=== PATIENT | female | born 1970 | race Caucasian/White ===

== ENCOUNTER 2017-03-30 13:16 | Emergency (ER) | payer OTHER, BC ==
[2017-03-30] MEDS: HYDROcodone/APAP 5/325MG 1 TAB TABLET PO ×2 (15:18)
[2017-03-30] MEDS: CYCLOBENZAPRINE 10 MG TABLET. PO ×2 (15:18)
[2017-03-30] MEDS: KETOROLAC 15 MG/ML VIAL. IV ×2 (15:19)
== END 2017-03-30 15:31 | disposition home or self-care (01) ==
LOC: ER 13:16
DX: S09.90XA Unspecified injury of head, initial encounter (principal); R07.89 Other chest pain; M54.2 Cervicalgia; R11.2 Nausea with vomiting, unspecified; R19.7 Diarrhea, unspecified; R10.30 Lower abdominal pain, unspecified; F31.9 Bipolar disorder, unspecified; E78.00 Pure hypercholesterolemia, unspecified; Z88.8 Allergy status to other drugs, medicaments and biological substances; Z88.4 Allergy status to anesthetic agent; V43.52XA Car driver injured in collision with other type car in traffic accident, initial encounter; Y93.I9 Activity, other involving external motion; Y92.410 Unspecified street and highway as the place of occurrence of the external cause; Y99.8 Other external cause status
CPT/HCPCS: 70450; 71046; 72125; 93005; 96374; 99284-25; J1885

== ENCOUNTER 2017-08-07 20:22 | Emergency (ER) | payer BC, OTHER ==
[2017-08-08] MEDS: IV NORMAL SALINE 1000ML BAG 1,000 ML IV (00:14)
[2017-08-08] MEDS: KETOROLAC 30 MG/ML INJ. IV (00:15)
[2017-08-08] MEDS: diphenhydrAMINE 50 MG/ML VIAL IVP (00:15)
[2017-08-08] MEDS: MORPHINE SULFATE 4 MG/ML DISP.SYRIN. IV (00:16)
[2017-08-08] MEDS: METOCLOPRAMIDE HCL 10 MG/2 ML VIAL. IV (00:16)
== END 2017-08-08 01:04 | disposition home or self-care (01) ==
LOC: ER 08-08 01:04
DX: G43.909 Migraine, unspecified, not intractable, without status migrainosus (principal); E78.00 Pure hypercholesterolemia, unspecified; Z88.4 Allergy status to anesthetic agent; Z88.8 Allergy status to other drugs, medicaments and biological substances
CPT/HCPCS: 96374; 96375; 99284; J1200; J1885; J2270; J2765; J7030

== ENCOUNTER 2019-02-16 22:47 | Inpatient (IN) | payer BC ==
[~2019-02-16] VITALS: Ht 167.6 cm; Wt 79.0 kg
[~2019-02-16 22:47] MED LIST: CYCL10TA2 PO; HYDR-3164 PO; IBUP-1007 PO
--- NOTE | 2019-02-16 23:08 | PHYS DOC ---
Past Medical History Past Medical History: Bipolar, High Cholesterol, Migraines, Other Additional Past Medical Histor: GRAVES DX, HIGH TRIGLYCERIDES Past Surgical History: Tubal ligation, Other Additional Past Surgical Histo: LAP AND FALLOPIAN TUBE REMOVAL SX, BILAT EYE SX, R KNEE Alcohol Use: None Drug Use: None Adult General Chief Complaint Chief Complaint: ABDOMINAL PAIN [facility] HPI Patient is a 49 year old female who presents with abdominal pain has been ongoing for 4 days. The patient describes the pain as epigastric pain that also radiates to the right and left upper quadrant. The patient rates her pain 10 out of 10 in severity and sharp. The patient states that this is been ongoing intermittently for 10 months. States they have been unable to figure out what is causing his pain. The patient also states that she's having little bit of chest pain. Review of Systems Review of Systems Constitutional: Denies fever or chills [] Eyes: Denies change in visual acuity, redness, or eye pain [] HENT: Denies nasal congestion or sore throat [] Respiratory: Denies cough or shortness of breath [] Cardiovascular: No additional information not addressed in HPI [] GI: Reports abdominal pain. denies nausea, vomiting, bloody stools or diarrhea [] : Denies dysuria or hematuria [] Musculoskeletal: Denies back pain or joint pain [] Integument: Denies rash or skin lesions [] Neurologic: Denies headache, focal weakness or sensory changes [] Endocrine: Denies polyuria or polydipsia [] Complete systems were reviewed and found to be within normal limits, except as documented in this note. Current Medications Current Medications Current Medications Medications (Trade) Dose Ordered Sig/Deep Start Time Stop Time Status Last Admin Dose Admin Ceftriaxone Sodium (Rocephin) 1 gm 1X ONCE 02/17/19 01:00 02/17/19 01:01 Morphine Sulfate (Morphine Sulfate) 4 mg PRN Q2HR PRN 02/17/19 01:00 02/18/19 00:59 UNV Multi-Ingredient Mouthwash/Gargle (Gi Cocktail) 20 ml 1X ONCE 02/16/19 23:30 02/16/19 23:31 DC 02/16/19 23:04 20 ML Ondansetron HCl (Zofran) 4 mg PRN Q8HRS PRN 02/17/19 01:00 02/18/19 00:59 UNV Piperacillin Sod/ Tazobactam Sod 3.375 gm/Sodium Chloride 50 ml @ 100 mls/hr 1X ONCE 02/17/19 01:00 02/17/19 01:29 Sodium Chloride 1,000 ml @ 1,000 mls/hr 1X ONCE 02/16/19 23:30 02/17/19 00:29 DC 02/16/19 23:04 1,000 MLS/HR Allergies Allergies Allergies Coded Allergies Type Severity Reaction Last Updated Verified levothyroxine Allergy Intermediate HIVES 03/30/17 Yes propofol Adverse Reaction Intermediate VERTIGO 03/30/17 Yes Physical Exam Physical Exam Constitutional: Well developed, well nourished, no acute distress, non-toxic appearance. [] HENT: Normocephalic, atraumatic, bilateral external ears normal, oropharynx moist, no oral exudates, nose normal. [] Eyes: PERRLA, EOMI, conjunctiva normal, no discharge. [] Neck: Normal range of motion, no tenderness, supple, no stridor. [] Cardiovascular:Heart rate bradycardic, no murmur [] Lungs & Thorax: Bilateral breath sounds clear to auscultation [] Abdomen: Bowel sounds normal, soft, RUQ and LUQ abdominal pain, no masses, no pulsatile masses. [] Skin: Warm, dry, no erythema, no rash. [] Neurologic: Alert and oriented X 3, normal motor function, normal sensory function, no focal deficits noted. [] Psychologic: Affect normal, judgement normal, mood normal. [] Current Patient Data Vital Signs Vital Signs Date Time Temp Pulse Resp B/P (MAP) Pulse Ox O2 Delivery O2 Flow Rate FiO2 02/16/19 23:57 21 96 Room Air 02/16/19 22:50 97.4 47 177/79 (111) 97.4 Lab Values Laboratory Tests Test 02/16/19 22:55 White Blood Count 10.0 x10^3/uL (4.0-11.0) Red Blood Count 4.83 x10^6/uL (3.50-5.40) Hemoglobin 14.2 g/dL (12.0-15.5) Hematocrit 42.0 % (36.0-47.0) Mean Corpuscular Volume 87 fL (79-100) Mean Corpuscular Hemoglobin 30 pg (25-35) Mean Corpuscular Hemoglobin Concent 34 g/dL (31-37) Red Cell Distribution Width 12.5 % (11.5-14.5) Platelet Count 339 x10^3/uL (140-400) Neutrophils (%) (Auto) 49 % (31-73) Lymphocytes (%) (Auto) 38 % (24-48) Monocytes (%) (Auto) 8 % (0-9) Eosinophils (%) (Auto) 4 % (0-3) H Basophils (%) (Auto) 1 % (0-3) Neutrophils # (Auto) 4.9 x10^3/uL (1.8-7.7) Lymphocytes # (Auto) 3.9 x10^3/uL (1.0-4.8) Monocytes # (Auto) 0.8 x10^3/uL (0.0-1.1) Eosinophils # (Auto) 0.4 x10^3/uL (0.0-0.7) Basophils # (Auto) 0.1 x10^3/uL (0.0-0.2) Urine Collection Type Unknown Urine Color Yellow Urine Clarity Cloudy Urine pH 6.5 Urine Specific [place] 1.020 Urine Protein Negative mg/dL (NEG-TRACE) Urine Glucose (UA) Negative mg/dL (NEG) Urine Ketones (Stick) Negative mg/dL (NEG) Urine Blood Negative (NEG) Urine Nitrite Negative (NEG) Urine Bilirubin Negative (NEG) Urine Urobilinogen Dipstick 1.0 mg/dL (0.2 mg/dL) Urine Leukocyte Esterase Large (NEG) Urine RBC Occ /HPF (0-2) Urine WBC 11-20 /HPF (0-4) Urine Squamous Epithelial Cells Many /LPF Urine Amorphous Sediment Present /HPF Urine Bacteria Many /HPF (0-FEW) Urine Mucus Marked /LPF Sodium Level 145 mmol/L (136-145) Potassium Level 3.7 mmol/L (3.5-5.1) Chloride Level 106 mmol/L (98-107) Carbon Dioxide Level 26 mmol/L (21-32) Anion Gap 13 (6-14) Blood Urea Nitrogen 17 mg/dL (7-20) Creatinine 1.0 mg/dL (0.6-1.0) Estimated GFR (Cockcroft-Gault) 58.7 BUN/Creatinine Ratio 17 (6-20) Glucose Level 112 mg/dL (70-99) H Calcium Level 10.0 mg/dL (8.5-10.1) Total Bilirubin 0.3 mg/dL (0.2-1.0) Aspartate Amino Transferase (AST) 14 U/L (15-37) L Alanine Aminotransferase (ALT) 21 U/L (14-59) Alkaline Phosphatase 51 U/L (46-116) Troponin I Quantitative < 0.017 ng/mL (0.000-0.055) Total Protein 7.1 g/dL (6.4-8.2) Albumin 4.0 g/dL (3.4-5.0) Albumin/Globulin Ratio 1.3 (1.0-1.7) Lipase 181 U/L (73-393) Laboratory Tests 02/16/19 22:55 Laboratory Tests 02/16/19 22:55 EKG EKG EKG interpreted by Dr. Willie keen with rate of 48. No STEMI. Radiology/Procedures Radiology/Procedures [][facility] [address] [place] [address] IMAGING REPORT Signed PATIENT: PEREZ BAUTISTA ACCOUNT: [id number] : 1970 LOCATION: ER AGE: 49 SEX: F EXAM STATUS: REG ER ORD. PHYSICIAN: ANGELICA PINEDA APRN REASON: RUQ, LUQ abdominal pain PROCEDURE: ABDOMEN COMPLETE ABDOMEN COMPLETE Realtime grayscale images of the abdomen with color and pulsed doppler utilized as appropriate. History: Abdominal pain for 4 days Comparison: None. Findings: The liver is normal in appearance and echogenicity. No intrahepatic biliary ductal dilatation or mass is seen. Cholelithiasis, with 1.6 cm stone in the gallbladder neck. Abnormal gallbladder wall thickening measuring 0.4 cm. Sonographic Marcial's sign is reported as present. The common bile duct is normal in diameter and measures 0.4 cm. Portal Vein flow is hepatopetal. The pancreas is not well visualized. The aorta and IVC are normal diameter where visualized. The right kidney is normal in appearance, measuring 9.4 cm in length. The left kidney is normal in appearance, measuring 11.4 cm in length. No hydronephrosis or perinephric fluid are seen bilaterally. The spleen is normal in appearance and measures 11.7 cm. Impression: Cholelithiasis with abnormal gallbladder wall thickening. Sonographic Marcial's sign is reported as present. Findings are suspicious for acute cholecystitis. Electronically signed by: Nima Gutiérrez MD (02/17/2019 12:02 AM) [facility] DICTATED and SIGNED BY: NIMA GUTIÉRREZ MD DATE: 02/17/19 0002 Course & Med Decision Making Course & Med Decision Making Pertinent Labs and Imaging studies reviewed. (See chart for details) Will get labs, ekg, chest x-ray, and ultrasound. Will also give supportive care. Labs are unremarkable. Urine shows leukocytes. Will place on Rocephin. Ultrasound suggests Cholecystitis. Discussed with Dr. William ([id number]). Will order Zosyn and make NPO. Dragon Disclaimer Dragon Disclaimer This electronic medical record was generated, in whole or in part, using a voice recognition dictation system. Departure Departure Impression: Primary Impression: Cholecystitis, acute with cholelithiasis Additional Impression: Urinary tract infection Disposition: ADMITTED INPATIENT Admitting Physician: GILMAR Condition: STABLE Referrals: JAZZY MONSIVAIS MD (PCP) Problem Qualifiers Primary Impression: Cholecystitis, acute with cholelithiasis Biliary obstruction: without biliary obstruction Qualified Codes: K80.00 - Calculus of gallbladder with acute cholecystitis without obstruction ANGELICA PINEDA APRN Feb 16, 2019 23:08
[2019-02-16 23:10] LABS: BASO # 0.1 x10^3/uL (0.0-0.2); BASO % 1 % (0-3); BILIRUBIN,URINE NEGATIVE (NEG); CLARITY,URINE CLOUDY; COLOR,URINE YELLOW; EOS # 0.4 x10^3/uL (0.0-0.7); EOS % 4 % (0-3); HEMOGLOBIN 14.2 g/dL (12.0-15.5); LYMPH # 3.9 x10^3/uL (1.0-4.8); LYMPH % 38 % (24-48); MEAN CORPUSCULAR HEMOGLOBIN 30 pg (25-35); MEAN CORPUSCULAR HGB CONC 34 g/dL (31-37); MEAN CORPUSCULAR VOLUME 87 fL (79-100); MONO # 0.8 x10^3/uL (0.0-1.1); MONO % 8 % (0-9); NEUT # 4.9 x10^3/uL (1.8-7.7); NEUT % 49 % (31-73); NITRITE,URINE NEGATIVE (NEG); PH,URINE 6.5; PLATELET COUNT 339 x10^3/uL (140-400); PROTEIN,URINE NEGATIVE (NEG-TRACE); RED BLOOD COUNT 4.83 x10^6/uL (3.50-5.40); RED CELL DISTRIBUTION WIDTH 12.5 % (11.5-14.5)
[2019-02-16 23:15] LABS: SQUAMOUS EPITHELIAL CELL,UR MANY /LPF
[2019-02-16 23:16] LABS: BACTERIA,URINE MANY /HPF (0-FEW); RBC,URINE OCC /HPF (0-2)
[2019-02-16 23:17] LABS: AMORPHOUS SEDIMENT,UR PRESENT /HPF
[2019-02-16 23:19] LABS: GFR 58.7; POTASSIUM 3.7 mmol/L (3.5-5.1)
[2019-02-16 23:22] LABS: ALBUMIN/GLOBULIN RATIO 1.3 (1.0-1.7); TOTAL BILIRUBIN 0.3 mg/dL (0.2-1.0); TOTAL PROTEIN 7.1 g/dL (6.4-8.2)
[2019-02-16] MEDS ORDERED: IV NORMAL SALINE 1000ML BAG 1,000 ML IV ONE (23:30)
[2019-02-16] MEDS ORDERED: LIDO:MAALOX 1:1 20 ML SINGLE DOSE. SWSW ONE (23:30)
[2019-02-16] MEDS ORDERED: MORPHINE SULFATE 10 MG/ML VIAL. IV ONE (23:30)
[2019-02-17] VITALS (13 sets, daily range): BP systolic 91–147; BP diastolic 46–79
--- NOTE | 2019-02-17 00:05 | RAD ---
ABDOMEN COMPLETE Realtime grayscale images of the abdomen with color and pulsed doppler utilized as appropriate. History: Abdominal pain for 4 days Comparison: None. Findings: The liver is normal in appearance and echogenicity. No intrahepatic biliary ductal dilatation or mass is seen. Cholelithiasis, with 1.6 cm stone in the gallbladder neck. Abnormal gallbladder wall thickening measuring 0.4 cm. Sonographic Marcial's sign is reported as present. The common bile duct is normal in diameter and measures 0.4 cm. Portal Vein flow is hepatopetal. The pancreas is not well visualized. The aorta and IVC are normal diameter where visualized. The right kidney is normal in appearance, measuring 9.4 cm in length. The left kidney is normal in appearance, measuring 11.4 cm in length. No hydronephrosis or perinephric fluid are seen bilaterally. The spleen is normal in appearance and measures 11.7 cm. Impression: Cholelithiasis with abnormal gallbladder wall thickening. Sonographic Marcial's sign is reported as present. Findings are suspicious for acute cholecystitis. Electronically signed by: Devon Gutiérrez MD (02/17/2019 12:02 AM) [facility]
[2019-02-17] MEDS ORDERED: MORPHINE SULFATE 10 MG/ML VIAL. IV ONE (00:30)
[2019-02-17] MEDS ORDERED: ONDANSETRON PF 4 MG/2 ML VIAL. IV PRN ×2 (01:00→09:00)
[2019-02-17] MEDS ORDERED: PIPERACILLIN/TAZOBACTAM 3.375 GM in IV NORMAL SALINE 50ML 50 ML IV ONE ×2 (01:00→11:15)
[2019-02-17] MEDS ORDERED: cefTRIAXone IV Push 1 GM VIAL. IVP ONE (01:00)
[2019-02-17] MEDS: MORPHINE SULFATE 4 MG/ML VIAL. IV PRN ×5 (02:33→21:16)
--- NOTE | 2019-02-17 04:03 | RAD ---
CHEST PA LATERAL INDICATION: Chest pain. COMPARISON STUDY: 03/21/1917. FINDINGS: Lungs: Normal lung volume. No pulmonary mass or consolidation. The tracheobronchial tree and hilar structures are normal. Pleura: No pleural effusion or pneumothorax. Heart and Mediastinum: The cardiomediastinal silhouette is normal. The great vessels of the thorax are normal. Bones and Soft Tissues: The bones and soft tissues are within normal limits. IMPRESSION: No acute cardiopulmonary process. Electronically signed by: Devon Gutiérrez MD (02/17/2019 4:01 AM) [facility]
--- NOTE | 2019-02-17 06:53 | EKG ---
[facility] [address] [place] [address] Test Date: 2019-02-16 Test Time: 23:13:00 Pat Name: PEREZ BAUTISTA Department: Room: Gender: F Medical Editor: : 1970 Requested By: ANGELICA PINEDA Order Number: [id number] Reading MD: Measurements Intervals [employer] Rate: 48 P: 30 [place]: 150 QRS: -5 QRSD: 80 T: 19 QT: 446 QTc: 398 Interpretive Statements SINUS BRADYCARDIA ATRIAL PREMATURE COMPLEX(ES) LEFTWARD AXIS QRS(T) CONTOUR ABNORMALITY CONSIDER ANTEROLATERAL MYOCARDIAL DAMAGE POSSIBLY ABNORMAL ECG RI6.01 No previous ECG available for comparison
--- NOTE | 2019-02-17 08:34 | PDOC2 ---
FRANCISCA DOUGHERTY SENIOR INVESTMENT MANAGER 02/17/19 0834: CONSULT Date of Consult Date of Consult DATE: 02/17/19 TIME: 08:25 Reason for Consult Reason for Consult: cholecystitis Referring Physician Referring Physician: ER Identification/Chief Complaint Chief Complaint abdominal pain Source Source: Chart review, Patient History of Present Illness Reason for Visit: Reports several months of upper abdominal pain. Occurs after eating, associated nausea, emesis occasionally. Developed thursday and pain was severe and not improving. She did recently have a EGD, needed sono but just had not scheduled it yet. Past Medical History Cardiovascular: Hyperlipidemia Psych: Bipolar Endocrine: Other (graves disease ) Past Surgical History Past Surgical History: Tubal Ligation Family History Family History: Other (gallbladder disease ) Social History Quit (2012) ALCOHOL: none Drugs: Marijuana Lives: with Family Current Problem List Problem List Problems Medical Problems: (1) Cholecystitis, acute with cholelithiasis Status: Acute (2) Urinary tract infection Status: Acute Current Medications Current Medications Current Medications Sodium Chloride 1,000 ml @ 1,000 mls/hr 1X ONCE IV Last administered on 02/16/19at 23:04; Start 02/16/19 at 23:30; Stop 02/17/19 at 00:29; Status DC Multi-Ingredient Mouthwash/Gargle (Gi Cocktail) 20 ml 1X ONCE SWSW Last administered on 02/16/19at 23:04; Start 02/16/19 at 23:30; Stop 02/16/19 at 23:31; Status DC Morphine Sulfate (Morphine Sulfate) 5 mg 1X ONCE IV Last administered on 02/16/19at 23:04; Start 02/16/19 at 23:30; Stop 02/16/19 at 23:31; Status DC Morphine Sulfate (Morphine Sulfate) 5 mg 1X ONCE IV Last administered on 02/16/19at 23:57; Start 02/17/19 at 00:30; Stop 02/17/19 at 00:31; Status DC Piperacillin Sod/ Tazobactam Sod 3.375 gm/Sodium Chloride 50 ml @ 100 mls/hr 1X ONCE IV Last administered on 02/17/19at 01:01; Start 02/17/19 at 01:00; Stop 02/17/19 at 01:29; Status DC Ceftriaxone Sodium (Rocephin) 1 gm 1X ONCE IVP Last administered on 02/17/19at 01:01; Start 02/17/19 at 01:00; Stop 02/17/19 at 01:01; Status DC Ondansetron HCl (Zofran) 4 mg PRN Q8HRS PRN IV NAUSEA/VOMITING 1ST CHOICE; Start 02/17/19 at 01:00; Stop 02/18/19 at 00:59 Morphine Sulfate (Morphine Sulfate) 4 mg PRN Q2HR PRN IV SEVERE PAIN 7-10 Last administered on 02/17/19at 04:49; Start 02/17/19 at 01:00; Stop 02/18/19 at 00:59 Active Scripts Active Casa 5-325 Tablet (Acetaminophen/Hydrocodone Bitart) 1 Each Tablet 1 Tab PO QID PRN Ibuprofen 600 Mg Tablet 600 Mg PO PRN Q6HRS PRN Cyclobenzaprine Hcl 10 Mg Tablet 10 Mg PO TID PRN Allergies Allergies: Coded Allergies: levothyroxine (Verified Allergy, Intermediate, HIVES, 03/30/17) STATES "I AM ALLERGIC TO THE GENERIC LEVOTHYROXINE BUT I TAKE SYNTHROID". propofol (Verified Adverse Reaction, Intermediate, VERTIGO, 03/30/17) ROS General: No: Chills, Other (fevers ) PSYCHOLOGICAL ROS: No: Anxiety, Depression Eyes: No Blurry vision, No Double vision HEENT: No: Heacaches, Sore Throat Hematological and Lymphatic: No: Bleeding Problems, Blood Clots Respiratory: YES: Shortness of breath; No: Cough Cardiovascular: yes Chest Pain; No Palpitations Gastrointestinal: Yes Other (see hpi) Genitourinary: No Dysuria, No Hematuria Musculoskeletal: No Joint Pain, No Muscle Pain Neurological: No Impaired Coord/balance Skin: No Pruritus, No Rash Physical Exam General: Alert, Oriented X3, Cooperative, No acute distress HEENT: PERRLA, Mucous membr. moist/pink Lungs: Clear to auscultation, Normal air movement Heart: Regular rate, Normal S1, Normal S2 Abdomen: Soft, Other (ttp upper abdomen ) Extremities: No clubbing, No cyanosis Skin: No rashes, No breakdown Neuro: Normal gait, Normal speech Psych/Mental Status: Mental status NL, Mood NL MUSCULOSKELETAL: No deformity, No swelling Vitals VITALS Vital Signs Date Time Temp Pulse Resp B/P (MAP) Pulse Ox O2 Delivery O2 Flow Rate FiO2 02/17/19 05:19 18 02/17/19 04:54 97.8 52 100/55 (70) 98 Room Air 97.8 Labs Labs Laboratory Tests Test 02/16/19 22:55 White Blood Count 10.0 x10^3/uL (4.0-11.0) Red Blood Count 4.83 x10^6/uL (3.50-5.40) Hemoglobin 14.2 g/dL (12.0-15.5) Hematocrit 42.0 % (36.0-47.0) Mean Corpuscular Volume 87 fL (79-100) Mean Corpuscular Hemoglobin 30 pg (25-35) Mean Corpuscular Hemoglobin Concent 34 g/dL (31-37) Red Cell Distribution Width 12.5 % (11.5-14.5) Platelet Count 339 x10^3/uL (140-400) Neutrophils (%) (Auto) 49 % (31-73) Lymphocytes (%) (Auto) 38 % (24-48) Monocytes (%) (Auto) 8 % (0-9) Eosinophils (%) (Auto) 4 % (0-3) Basophils (%) (Auto) 1 % (0-3) Neutrophils # (Auto) 4.9 x10^3/uL (1.8-7.7) Lymphocytes # (Auto) 3.9 x10^3/uL (1.0-4.8) Monocytes # (Auto) 0.8 x10^3/uL (0.0-1.1) Eosinophils # (Auto) 0.4 x10^3/uL (0.0-0.7) Basophils # (Auto) 0.1 x10^3/uL (0.0-0.2) Urine Collection Type Unknown Urine Color Yellow Urine Clarity Cloudy Urine pH 6.5 Urine Specific [place] 1.020 Urine Protein Negative mg/dL (NEG-TRACE) Urine Glucose (UA) Negative mg/dL (NEG) Urine Ketones (Stick) Negative mg/dL (NEG) Urine Blood Negative (NEG) Urine Nitrite Negative (NEG) Urine Bilirubin Negative (NEG) Urine Urobilinogen Dipstick 1.0 mg/dL (0.2 mg/dL) Urine Leukocyte Esterase Large (NEG) Urine RBC Occ /HPF (0-2) Urine WBC 11-20 /HPF (0-4) Urine Squamous Epithelial Cells Many /LPF Urine Amorphous Sediment Present /HPF Urine Bacteria Many /HPF (0-FEW) Urine Mucus Marked /LPF Sodium Level 145 mmol/L (136-145) Potassium Level 3.7 mmol/L (3.5-5.1) Chloride Level 106 mmol/L (98-107) Carbon Dioxide Level 26 mmol/L (21-32) Anion Gap 13 (6-14) Blood Urea Nitrogen 17 mg/dL (7-20) Creatinine 1.0 mg/dL (0.6-1.0) Estimated GFR (Cockcroft-Gault) 58.7 BUN/Creatinine Ratio 17 (6-20) Glucose Level 112 mg/dL (70-99) Calcium Level 10.0 mg/dL (8.5-10.1) Total Bilirubin 0.3 mg/dL (0.2-1.0) Aspartate Amino Transf (AST/SGOT) 14 U/L (15-37) Alanine Aminotransferase (ALT/SGPT) 21 U/L (14-59) Alkaline Phosphatase 51 U/L (46-116) Troponin I Quantitative < 0.017 ng/mL (0.000-0.055) Total Protein 7.1 g/dL (6.4-8.2) Albumin 4.0 g/dL (3.4-5.0) Albumin/Globulin Ratio 1.3 (1.0-1.7) Lipase 181 U/L (73-393) Laboratory Tests Test 02/16/19 22:55 White Blood Count 10.0 x10^3/uL (4.0-11.0) Red Blood Count 4.83 x10^6/uL (3.50-5.40) Hemoglobin 14.2 g/dL (12.0-15.5) Hematocrit 42.0 % (36.0-47.0) Mean Corpuscular Volume 87 fL (79-100) Mean Corpuscular Hemoglobin 30 pg (25-35) Mean Corpuscular Hemoglobin Concent 34 g/dL (31-37) Red Cell Distribution Width 12.5 % (11.5-14.5) Platelet Count 339 x10^3/uL (140-400) Neutrophils (%) (Auto) 49 % (31-73) Lymphocytes (%) (Auto) 38 % (24-48) Monocytes (%) (Auto) 8 % (0-9) Eosinophils (%) (Auto) 4 % (0-3) Basophils (%) (Auto) 1 % (0-3) Neutrophils # (Auto) 4.9 x10^3/uL (1.8-7.7) Lymphocytes # (Auto) 3.9 x10^3/uL (1.0-4.8) Monocytes # (Auto) 0.8 x10^3/uL (0.0-1.1) Eosinophils # (Auto) 0.4 x10^3/uL (0.0-0.7) Basophils # (Auto) 0.1 x10^3/uL (0.0-0.2) Urine Collection Type Unknown Urine Color Yellow Urine Clarity Cloudy Urine pH 6.5 Urine Specific [place] 1.020 Urine Protein Negative mg/dL (NEG-TRACE) Urine Glucose (UA) Negative mg/dL (NEG) Urine Ketones (Stick) Negative mg/dL (NEG) Urine Blood Negative (NEG) Urine Nitrite Negative (NEG) Urine Bilirubin Negative (NEG) Urine Urobilinogen Dipstick 1.0 mg/dL (0.2 mg/dL) Urine Leukocyte Esterase Large (NEG) Urine RBC Occ /HPF (0-2) Urine WBC 11-20 /HPF (0-4) Urine Squamous Epithelial Cells Many /LPF Urine Amorphous Sediment Present /HPF Urine Bacteria Many /HPF (0-FEW) Urine Mucus Marked /LPF Sodium Level 145 mmol/L (136-145) Potassium Level 3.7 mmol/L (3.5-5.1) Chloride Level 106 mmol/L (98-107) Carbon Dioxide Level 26 mmol/L (21-32) Anion Gap 13 (6-14) Blood Urea Nitrogen 17 mg/dL (7-20) Creatinine 1.0 mg/dL (0.6-1.0) Estimated GFR (Cockcroft-Gault) 58.7 BUN/Creatinine Ratio 17 (6-20) Glucose Level 112 mg/dL (70-99) Calcium Level 10.0 mg/dL (8.5-10.1) Total Bilirubin 0.3 mg/dL (0.2-1.0) Aspartate Amino Transf (AST/SGOT) 14 U/L (15-37) Alanine Aminotransferase (ALT/SGPT) 21 U/L (14-59) Alkaline Phosphatase 51 U/L (46-116) Troponin I Quantitative < 0.017 ng/mL (0.000-0.055) Total Protein 7.1 g/dL (6.4-8.2) Albumin 4.0 g/dL (3.4-5.0) Albumin/Globulin Ratio 1.3 (1.0-1.7) Lipase 181 U/L (73-393) Assessment/Plan Assessment/Plan cholecystitis will review with Dr Gonzales for planning of lap ivory PHANI GONZALES MD 02/17/19 1039: CONSULT Assessment/Plan Assessment/Plan pt seen, interviewed and examined at bedside explained risks of cholecystectomy including but not limited to bleeding, infection, injury to bowel, liver or bile ducts with need for further surgical intervention, diarrhea, open procedure she will proceed Thanks for consult FRANCISCA DOUGHERTY APRN Feb 17, 2019 08:34 PHANI GONZALES MD Feb 17, 2019 10:39
[2019-02-17] MEDS ORDERED: IV RINGERS,LACTATED 1000ML 1,000 ML IV SCH (08:52)
[2019-02-17] MEDS ORDERED: fentaNYL PF VIAL 100 MCG/2 ML VIAL IV PRN ×2 (09:00)
[2019-02-17] MEDS ORDERED: HYDROcodone/APAP 5/325MG 1 TAB TABLET PO PRN (09:15)
[2019-02-17] MEDS ORDERED: ACETAMINOPHEN 500 MG TABLET PO PRN (09:15)
[2019-02-17] MEDS ORDERED: CALCIUM CARBONATE 500 MG TAB.CHEW PO PRN (09:15)
[2019-02-17] MEDS ORDERED: ZOLPIDEM 5 MG TABLET. PO PRN (09:15)
[2019-02-17] MEDS ORDERED: CYCLOBENZAPRINE 10 MG TABLET. PO PRN (09:15)
[2019-02-17] MEDS ORDERED: ONDANSETRON PF 4 MG/2 ML VIAL. IVP PRN ×2 (09:15→15:30)
[2019-02-17] MEDS ORDERED: oxyCODONE/APAP 5/325 1 TAB TABLET PO PRN ×2 (09:15→15:30)
[2019-02-17] MEDS ORDERED: PROPOFOL 20 ML IV ONE (11:57)
[2019-02-17] MEDS ORDERED: ONDANSETRON PF 4 MG/2 ML VIAL. ONE (11:57)
[2019-02-17] MEDS ORDERED: DEXAMETHASONE SOD PHOS 4 MG/ML VIAL ONE (11:57)
[2019-02-17] MEDS ORDERED: LIDOCAINE 2% PF 5 ML VIAL. ONE (11:57)
--- NOTE | 2019-02-17 12:24 | PDOC1 ---
History and Physical Date of Admission Date of Admission DATE: 02/17/19 TIME: 12:20 Identification/Chief Complaint Chief Complaint abd pain Source Source: Caregiver, Chart review, Patient History of Present Illness History of Present Illness 49 white female, abd pain acute onset, some nausea, no fevers or change inBM, HAs US, acute cholecystitis with positive sonographic murphys OR later per gS Past Medical History Cardiovascular: Hyperlipidemia Psych: Bipolar Endocrine: Other (graves disease ) Past Surgical History Past Surgical History: Tubal Ligation, No pertinent history Family History Family History: Other (gallbladder disease ) Social History Smoke: No ALCOHOL: none Drugs: Marijuana Current Problem List Problem List Problems Medical Problems: (1) Cholecystitis, acute with cholelithiasis Status: Acute (2) Urinary tract infection Status: Acute Current Medications Current Medications Current Medications Sodium Chloride 1,000 ml @ 1,000 mls/hr 1X ONCE IV Last administered on 02/16/19at 23:04; Start 02/16/19 at 23:30; Stop 02/17/19 at 00:29; Status DC Multi-Ingredient Mouthwash/Gargle (Gi Cocktail) 20 ml 1X ONCE SWSW Last administered on 02/16/19at 23:04; Start 02/16/19 at 23:30; Stop 02/16/19 at 23 :31; Status DC Morphine Sulfate (Morphine Sulfate) 5 mg 1X ONCE IV Last administered on 02/16/19at 23:04; Start 02/16/19 at 23:30; Stop 02/16/19 at 23:31; Status DC Morphine Sulfate (Morphine Sulfate) 5 mg 1X ONCE IV Last administered on 02/16/19at 23:57; Start 02/17/19 at 00:30; Stop 02/17/19 at 00:31; Status DC Piperacillin Sod/ Tazobactam Sod 3.375 gm/Sodium Chloride 50 ml @ 100 mls/hr 1X ONCE IV Last administered on 02/17/19at 01:01; Start 02/17/19 at 01:00; Stop 02/17/19 at 01:29; Status DC Ceftriaxone Sodium (Rocephin) 1 gm 1X ONCE IVP Last administered on 02/17/19at 01:01; Start 02/17/19 at 01:00; Stop 02/17/19 at 01:01; Status DC Ondansetron HCl (Zofran) 4 mg PRN Q8HRS PRN IV NAUSEA/VOMITING 1ST CHOICE; Start 02/17/19 at 01:00; Stop 02/18/19 at 00:59 Morphine Sulfate (Morphine Sulfate) 4 mg PRN Q2HR PRN IV SEVERE PAIN 7-10 Last administered on 02/17/19at 10:40; Start 02/17/19 at 01:00; Stop 02/18/19 at 00:59 Ondansetron HCl (Zofran) 4 mg PRN Q6HRS PRN IV NAUSEA/VOMITING; Start 02/17/19 at 09:00; Stop 02/17/19 at 20:00 Fentanyl Citrate (Fentanyl 2ml Vial) 25 mcg PRN Q5MIN PRN IV MILD PAIN 1-3; S tart 02/17/19 at 09:00; Stop 02/17/19 at 20:00 Fentanyl Citrate (Fentanyl 2ml Vial) 50 mcg PRN Q5MIN PRN IV MODERATE TO SEVERE PAIN; Start 02/17/19 at 09:00; Stop 02/17/19 at 20:00 Morphine Sulfate (Morphine Sulfate) 1 mg PRN Q10MIN PRN IV SEVERE PAIN 7-10; Start 02/17/19 at 09:00; Stop 02/17/19 at 20:00 Ringer's Solution 1,000 ml @ 30 mls/hr Q24H IV ; Start 02/17/19 at 08:52; Stop 02/17/19 at 20:51 Hydromorphone HCl (Dilaudid) 0.5 mg PRN Q10MIN PRN IV SEV PAIN, Second choice; Start 02/17/19 at 09:00; Stop 02/17/19 at 20:00 Prochlorperazine Edisylate (Compazine) 5 mg PACU PRN PRN IV NAUSEA, MRX1; Start 02/17/19 at 09:00; Stop 02/17/19 at 20:00 Oxycodone/ Acetaminophen (Percocet 5/325) 1 tab PRN Q4HRS PRN PO MODERATE TO SEVERE PAIN; Start 02/17/19 at 09:15 Ondansetron HCl (Zofran) 4 mg PRN Q6HRS PRN IVP NAUSEA/VOMITING; Start 02/17/19 at 09:15 Acetaminophen (Tylenol) 500 mg PRN Q6HRS PRN PO MILD PAIN / TEMP; Start 02/17/19 at 09:15 Zolpidem Tartrate (Ambien) 5 mg PRN QHS PRN PO INSOMNIA; Start 02/17/19 at 09:15 Calcium Carbonate/ Glycine (Tums) 500 mg PRN AFTMEALHC PRN PO INDIGESTION; Start 02/17/19 at 09:15 Cyclobenzaprine HCl (Flexeril) 10 mg PRN TID PRN PO MUSCLE PAIN; Start 02/17/19 at 09:15 Acetaminophen/ Hydrocodone Bitart (Lortab 5/325) 1 tab PRN QID PRN PO MODERATE PAIN; Start 02/17/19 at 09:15 Piperacillin Sod/ Tazobactam Sod 3.375 gm/Sodium Chloride 50 ml @ 100 mls/hr 1X ONCE IV ; Start 02/17/19 at 11:15; Stop 02/17/19 at 11:44; Status DC Dexamethasone Sodium Phosphate (Decadron) 4 mg STK-MED ONCE .ROUTE ; Start 02/17/19 at 11:57; Stop 02/17/19 at 11:57; Status DC Propofol 20 ml @ As Directed STK-MED ONCE IV ; Start 02/17/19 at 11:57; Stop 02/17/19 at 11:57; Status DC Lidocaine HCl (Lidocaine Pf 2% Vial) 5 ml STK-MED ONCE .ROUTE ; Start 02/17/19 at 11:57; Stop 02/17/19 at 11:57; Status DC Ondansetron HCl (Zofran) 4 mg STK-MED ONCE .ROUTE ; Start 02/17/19 at 11:57; Stop 02/17/19 at 11:57; Status DC Active Scripts Active [place] 5-325 Tablet (Acetaminophen/Hydrocodone Bitart) 1 Each Tablet 1 Tab PO QID PRN Ibuprofen 600 Mg Tablet 600 Mg PO PRN Q6HRS PRN Cyclobenzaprine Hcl 10 Mg Tablet 10 Mg PO TID PRN Allergies Allergies: Coded Allergies: levothyroxine (Verified Allergy, Intermediate, HIVES, 03/30/17) STATES "I AM ALLERGIC TO THE GENERIC LEVOTHYROXINE BUT I TAKE SYNTHROID". propofol (Verified Adverse Reaction, Intermediate, VERTIGO, 03/30/17) ROS Review of System as per hPI all else neg Physical Exam General: Alert, Oriented X3, Cooperative, No acute distress HEENT: Atraumatic, PERRLA, EOMI Lungs: Clear to auscultation, Normal air movement Heart: S1S2, RRR, no thrills, no rubs, no gallops, no murmurs Cardiovascular: S1, S2 Breasts: Normal, Rt breast nml w/o mass, Lt breast nml w/o mass, Nipples normal Abdomen: Normal bowel sounds, Soft, Other (tenderness epig and rUQ) Rectal Exam: not examined PELVIC: Nml ext genitalia Extremities: No clubbing, No cyanosis, No edema, Normal pulses, No tenderness/swelling Skin: No rashes, No breakdown, No significant lesion Neuro: Normal gait, Normal speech, Strength at 5/5 X4 ext, Normal tone, Sensation intact, Cranial nerves 3-12 NL, Reflexes 2+ Psych/Mental Status: Mental status NL, Mood NL Vitals Vitals Vital Signs Date Time Temp Pulse Resp B/P (MAP) Pulse Ox O2 Delivery O2 Flow Rate FiO2 02/17/19 11:25 16 Room Air 02/17/19 11:00 98.1 61 92/46 (61) 100 98.1 Labs Labs Laboratory Tests Test 02/16/19 22:55 White Blood Count 10.0 x10^3/uL (4.0-11.0) Red Blood Count 4.83 x10^6/uL (3.50-5.40) Hemoglobin 14.2 g/dL (12.0-15.5) Hematocrit 42.0 % (36.0-47.0) Mean Corpuscular Volume 87 fL (79-100) Mean Corpuscular Hemoglobin 30 pg (25-35) Mean Corpuscular Hemoglobin Concent 34 g/dL (31-37) Red Cell Distribution Width 12.5 % (11.5-14.5) Platelet Count 339 x10^3/uL (140-400) Neutrophils (%) (Auto) 49 % (31-73) Lymphocytes (%) (Auto) 38 % (24-48) Monocytes (%) (Auto) 8 % (0-9) Eosinophils (%) (Auto) 4 % (0-3) Basophils (%) (Auto) 1 % (0-3) Neutrophils # (Auto) 4.9 x10^3/uL (1.8-7.7) Lymphocytes # (Auto) 3.9 x10^3/uL (1.0-4.8) Monocytes # (Auto) 0.8 x10^3/uL (0.0-1.1) Eosinophils # (Auto) 0.4 x10^3/uL (0.0-0.7) Basophils # (Auto) 0.1 x10^3/uL (0.0-0.2) Urine Collection Type Unknown Urine Color Yellow Urine Clarity Cloudy Urine pH 6.5 Urine Specific [place] 1.020 Urine Protein Negative mg/dL (NEG-TRACE) Urine Glucose (UA) Negative mg/dL (NEG) Urine Ketones (Stick) Negative mg/dL (NEG) Urine Blood Negative (NEG) Urine Nitrite Negative (NEG) Urine Bilirubin Negative (NEG) Urine Urobilinogen Dipstick 1.0 mg/dL (0.2 mg/dL) Urine Leukocyte Esterase Large (NEG) Urine RBC Occ /HPF (0-2) Urine WBC 11-20 /HPF (0-4) Urine Squamous Epithelial Cells Many /LPF Urine Amorphous Sediment Present /HPF Urine Bacteria Many /HPF (0-FEW) Urine Mucus Marked /LPF Sodium Level 145 mmol/L (136-145) Potassium Level 3.7 mmol/L (3.5-5.1) Chloride Level 106 mmol/L (98-107) Carbon Dioxide Level 26 mmol/L (21-32) Anion Gap 13 (6-14) Blood Urea Nitrogen 17 mg/dL (7-20) Creatinine 1.0 mg/dL (0.6-1.0) Estimated GFR (Cockcroft-Gault) 58.7 BUN/Creatinine Ratio 17 (6-20) Glucose Level 112 mg/dL (70-99) Calcium Level 10.0 mg/dL (8.5-10.1) Total Bilirubin 0.3 mg/dL (0.2-1.0) Aspartate Amino Transf (AST/SGOT) 14 U/L (15-37) Alanine Aminotransferase (ALT/SGPT) 21 U/L (14-59) Alkaline Phosphatase 51 U/L (46-116) Troponin I Quantitative < 0.017 ng/mL (0.000-0.055) Total Protein 7.1 g/dL (6.4-8.2) Albumin 4.0 g/dL (3.4-5.0) Albumin/Globulin Ratio 1.3 (1.0-1.7) Lipase 181 U/L (73-393) Laboratory Tests Test 02/16/19 22:55 White Blood Count 10.0 x10^3/uL (4.0-11.0) Red Blood Count 4.83 x10^6/uL (3.50-5.40) Hemoglobin 14.2 g/dL (12.0-15.5) Hematocrit 42.0 % (36.0-47.0) Mean Corpuscular Volume 87 fL (79-100) Mean Corpuscular Hemoglobin 30 pg (25-35) Mean Corpuscular Hemoglobin Concent 34 g/dL (31-37) Red Cell Distribution Width 12.5 % (11.5-14.5) Platelet Count 339 x10^3/uL (140-400) Neutrophils (%) (Auto) 49 % (31-73) Lymphocytes (%) (Auto) 38 % (24-48) Monocytes (%) (Auto) 8 % (0-9) Eosinophils (%) (Auto) 4 % (0-3) Basophils (%) (Auto) 1 % (0-3) Neutrophils # (Auto) 4.9 x10^3/uL (1.8-7.7) Lymphocytes # (Auto) 3.9 x10^3/uL (1.0-4.8) Monocytes # (Auto) 0.8 x10^3/uL (0.0-1.1) Eosinophils # (Auto) 0.4 x10^3/uL (0.0-0.7) Basophils # (Auto) 0.1 x10^3/uL (0.0-0.2) Urine Collection Type Unknown Urine Color Yellow Urine Clarity Cloudy Urine pH 6.5 Urine Specific [place] 1.020 Urine Protein Negative mg/dL (NEG-TRACE) Urine Glucose (UA) Negative mg/dL (NEG) Urine Ketones (Stick) Negative mg/dL (NEG) Urine Blood Negative (NEG) Urine Nitrite Negative (NEG) Urine Bilirubin Negative (NEG) Urine Urobilinogen Dipstick 1.0 mg/dL (0.2 mg/dL) Urine Leukocyte Esterase Large (NEG) Urine RBC Occ /HPF (0-2) Urine WBC 11-20 /HPF (0-4) Urine Squamous Epithelial Cells Many /LPF Urine Amorphous Sediment Present /HPF Urine Bacteria Many /HPF (0-FEW) Urine Mucus Marked /LPF Sodium Level 145 mmol/L (136-145) Potassium Level 3.7 mmol/L (3.5-5.1) Chloride Level 106 mmol/L (98-107) Carbon Dioxide Level 26 mmol/L (21-32) Anion Gap 13 (6-14) Blood Urea Nitrogen 17 mg/dL (7-20) Creatinine 1.0 mg/dL (0.6-1.0) Estimated GFR (Cockcroft-Gault) 58.7 BUN/Creatinine Ratio 17 (6-20) Glucose Level 112 mg/dL (70-99) Calcium Level 10.0 mg/dL (8.5-10.1) Total Bilirubin 0.3 mg/dL (0.2-1.0) Aspartate Amino Transf (AST/SGOT) 14 U/L (15-37) Alanine Aminotransferase (ALT/SGPT) 21 U/L (14-59) Alkaline Phosphatase 51 U/L (46-116) Troponin I Quantitative < 0.017 ng/mL (0.000-0.055) Total Protein 7.1 g/dL (6.4-8.2) Albumin 4.0 g/dL (3.4-5.0) Albumin/Globulin Ratio 1.3 (1.0-1.7) Lipase 181 U/L (73-393) VTE Prophylaxis Ordered VTE Prophylaxis Devices: Yes VTE Pharmacological Prophylaxi: Yes Assessment/Plan Assessment/Plan 1. Acute cholecystitis 2. Dyslidpiemia, chronic stable PLAN: OR ;later, pain control Post op labs tmr I reconciled home meds JULIO [address]AR [address] MD Feb 17, 2019 12:24
--- NOTE | 2019-02-17 12:56 | NUR ---
SW following for discharge planning. Chart reviewed, discussed with RN, pt is from home. Lenora dodson today. SW will continue to follow should any discharge needs arise.
[2019-02-17] MEDS ORDERED: IOHEXOL 300 MG/ML 50 ML VIAL. ONE (13:03)
[2019-02-17] MEDS ORDERED: GLUCAGON,HUMAN RECOMBINANT 1 MG/ML VIAL. ONE ×2 (13:03→13:40)
[2019-02-17] MEDS ORDERED: SURGICEL HEMOSTAT 4X8 EACH. ONE ×2 (13:03→13:40)
[2019-02-17] MEDS ORDERED: BUPIVACAINE-EPI 0.5%-1:200000 MPF 30 ML VIAL. INJ ONE (13:15)
[2019-02-17] MEDS ORDERED: DESFLURANE 61 TO 120 MINUTES IH ONE (13:55)
[2019-02-17] MEDS ORDERED: GLYCOPYRROLATE 1 MG/5 ML VIAL. ONE (13:55)
[2019-02-17] MEDS ORDERED: fentaNYL PF VIAL 100 MCG/2 ML VIAL ONE ×2 (13:55→15:23)
[2019-02-17] MEDS ORDERED: ROCURONIUM 50 MG/5 ML VIAL. ONE (13:55)
[2019-02-17] MEDS ORDERED: NEOSTIGMINE METHYLSULFATE 5 MG/5 ML SYRINGE. ONE (13:55)
[2019-02-17] MEDS ORDERED: ETOMIDATE 20 MG/10 ML VIAL. IV ONE (14:13)
--- NOTE | 2019-02-17 15:04 | RAD ---
CHOLANGIOGRAM INTRAOPERATIVE History: Cholecystectomy Comparison: February 16, 2019 ultrasound Findings: Interpretation is made of submitted images only, exam performed by different physician. 4 low resolution intraprocedural views from a cholangiogram are submitted. There has been introduction of contrast into the cystic duct, common bile caliber within limits without defined intraluminal filling defect. There is some contrast in the duodenum. Fluoroscopy time: 27 seconds Impression: 1. No focal filling defect is identified of the common bile duct. Electronically signed by: Devon Hi MD (02/17/2019 3:01 PM) [facility]
[2019-02-17] MEDS: IV NORMAL SALINE 1000ML BAG 1,000 ML IV SCH (15:16)
--- NOTE | 2019-02-17 15:29 | PDOC ---
BRIEF OPERATIVE NOTE Date: Feb 17, 2019 Pre-Op Diagnosis cholelithiasis with acute cholecystitis Post-Op Diagnosis same Procedure Performed l/s ivory with grams Surgeon Stewart Surveillance Systems Engineer Annabelle HOLDER Anesthesia Type: General Blood Loss 10cc IV Fluid 700cc Specimens Obtained GB Findings acute cholecystitis, normal grams Complications none Operative Note Wk #[id number] PHANI GONZALES MD Feb 17, 2019 15:29
[2019-02-17] MEDS ORDERED: DEXTROSE 50% 25 GM / 50ML DISP.SYRIN. IV PRN (15:30)
[2019-02-17] MEDS ORDERED: HYDROmorphone 2 MG/ML VIAL IV PRN (15:30)
[2019-02-17] MEDS ORDERED: IV DEXTROSE 5% 250 ML BAG. IV PRN (15:30)
[2019-02-17] MEDS ORDERED: NALOXONE 0.4 MG/ML VIAL. IV PRN (15:30)
[2019-02-17] MEDS ORDERED: 0.9 % SODIUM CHLORIDE 10 ML DISP.SYRIN. IV PRN (15:30)
[2019-02-17] MEDS ORDERED: diphenhydrAMINE HCL 25 MG CAPSULE PO PRN (15:30)
[2019-02-17] MEDS ORDERED: HYDROmorphone 2 MG/ML VIAL ONE (15:58)
[2019-02-17] MEDS ORDERED: MORPHINE SULFATE 2 MG/ML VIAL. ONE (15:58)
[2019-02-17] MEDS: ENOXAPARIN 40 MG/0.4 ML SYRINGE. SQ SCH (16:00)
[2019-02-17] MEDS: MORPHINE SULFATE 2 MG/ML VIAL. IV PRN ×2 (16:05→16:29)
[2019-02-17] MEDS: HYDROmorphone 2 MG/ML VIAL IV PRN ×4 (16:11→16:57)
[2019-02-17] MEDS: PROCHLORPERAZINE 10 MG/2 ML VIAL. IV PRN ×2 (16:30→16:57)
[2019-02-17] MEDS: POTASSIUM CL 20MEQ-0.45% NACL 1,000 ML IV SCH (17:41)
--- NOTE | 2019-02-17 19:33 | OP ---
DATE OF SURGERY: 02/17/2019 PREOPERATIVE DIAGNOSES: Cholelithiasis with acute cholecystitis. POSTOPERATIVE DIAGNOSES: Cholelithiasis with acute cholecystitis. PROCEDURE: Laparoscopic cholecystectomy with cholangiogram. SURGEON: Sanjeev Gonzales MD THREAD WEAVER: GALLO Gordon ANESTHESIA: General endotracheal. ESTIMATED BLOOD LOSS: 10 mL. INTRAVENOUS: 700 mL. DESCRIPTION OF PROCEDURE: The patient brought to the operating suite, given general endotracheal anesthetic and the abdomen prepped and draped in usual sterile fashion. A supraumbilical incision was infiltrated with local anesthetic, incised and a 5 mm Visiport used to safely gain access into the abdominal cavity, taking care to avoid injury to abdominal contents. Pneumoperitoneum established. Camera inserted. Inspection carried out and under direct vision, the epigastric, midclavicular, and lateral ports were placed. Bed rolled to the left and placed in reverse Trendelenburg and the gallbladder was grasped and retracted superolaterally. Careful blunt and cautery dissection exposed the cystic duct, taking care to avoid injury to the adjacent bowel. The cystic duct was clipped on the gallbladder side. Cholangiograms were made. These were normal. In light of this, the catheter was removed. The cystic duct was clipped x 3 and divided, taking care to avoid injury or compromise the common duct. The cystic artery was clipped and divided. Then, the gallbladder freed from the bed with cautery dissection and placed in an EndoCatch bag. Hemostasis obtained in the fossa with cautery and a small piece of Surgicel. No bile leak seen. A 19-[place] round Lavelle drain was brought through the epigastric port out the lateral port, sewn to the skin with a silk stitch and left in the subhepatic space for postoperative drainage. Table returned to level. Gallbladder delivered through the epigastric incision. Epigastric incision closed with interrupted 0 Vicryl suture. Intra-abdominal pressure decreased to 6 cm of water. No bleeding from the epigastric closure or from the midclavicular port site after its removal or from the drain site. Abdomen decompressed, camera slowly removed, no bleeding seen. Skin incisions closed with subcuticular 4-0 Monocryl. Steri-Strips and sterile dressings applied. The patient awakened from her anesthetic and taken to the recovery room in satisfactory condition. SANJEEV GONZALES MD DR: Adair JOB#: [id number] / [id number]
[2019-02-17] MEDS: DOCUSATE SODIUM 100 MG CAPSULE. PO SCH (21:09)
[2019-02-18] MEDS: oxyCODONE/APAP 5/325 1 TAB TABLET PO PRN ×3 (02:17→19:48)
[2019-02-18 03:23] VITALS: BP 105/57
[2019-02-18 04:37] LABS: BASO % 0 % (0-3); EOS % 0 % (0-3); HEMATOCRIT 35.2 % (36.0-47.0); LYMPH # 1.7 x10^3/uL (1.0-4.8); LYMPH % 18 % (24-48); MEAN CORPUSCULAR HEMOGLOBIN 30 pg (25-35); MEAN CORPUSCULAR HGB CONC 34 g/dL (31-37); MEAN CORPUSCULAR VOLUME 88 fL (79-100); MONO # 0.5 x10^3/uL (0.0-1.1); MONO % 5 % (0-9); NEUT # 7.5 x10^3/uL (1.8-7.7); NEUT % 77 % (31-73); PLATELET COUNT 238 x10^3/uL (140-400); RED BLOOD COUNT 4.03 x10^6/uL (3.50-5.40); RED CELL DISTRIBUTION WIDTH 12.2 % (11.5-14.5); WHITE BLOOD COUNT 9.7 x10^3/uL (4.0-11.0)
[2019-02-18 05:07] LABS: ALBUMIN 2.8 g/dL (3.4-5.0); ALBUMIN/GLOBULIN RATIO 0.9 (1.0-1.7); CALCIUM 8.7 mg/dL (8.5-10.1); CREATININE 0.9 mg/dL (0.6-1.0); GFR 66.3; POTASSIUM 4.1 mmol/L (3.5-5.1); TOTAL BILIRUBIN 0.4 mg/dL (0.2-1.0); TOTAL PROTEIN 5.9 g/dL (6.4-8.2)
[2019-02-18] MEDS: POTASSIUM CL 20MEQ-0.45% NACL 1,000 ML IV SCH (05:51)
[2019-02-18 07:00] VITALS: BP 102/61
[2019-02-18] MEDS: DOCUSATE SODIUM 100 MG CAPSULE. PO SCH ×2 (08:30→21:10)
--- NOTE | 2019-02-18 08:35 | PDOC ---
FRANCISCA DOUGHERTY ELIGIBILITY EXAMINER 02/18/19 0834: SURGICAL PROGRESS NOTE Subjective dizzy worried about her BP and pulse--reports had been low when went to endo on Thursday pain not yet well controlled Vital Signs Vital Signs Date Time Temp Pulse Resp B/P (MAP) Pulse Ox O2 Delivery O2 Flow Rate FiO2 02/18/19 07:00 98.7 47 18 102/61 (75) 96 Room Air 98.7 02/17/19 21:16 2.0 I&O Intake and Output 02/18/19 07:00 Intake Total 2650 ml Output Total 865 ml Balance 1785 ml Intake Oral 1400 ml IV Total 1250 ml Output Urine Total 825 ml Drainage Total 30 ml Estimated Blood Loss 10 ml # Voids 1 General: Alert, Oriented X3, Cooperative Abdomen: Soft, Other (drain dark bloody, incision dressings dry) Labs Laboratory Tests Test 02/16/19 22:55 02/18/19 03:55 White Blood Count 10.0 x10^3/uL (4.0-11.0) 9.7 x10^3/uL (4.0-11.0) Red Blood Count 4.83 x10^6/uL (3.50-5.40) 4.03 x10^6/uL (3.50-5.40) Hemoglobin 14.2 g/dL (12.0-15.5) 12.0 g/dL (12.0-15.5) Hematocrit 42.0 % (36.0-47.0) 35.2 % (36.0-47.0) Mean Corpuscular Volume 87 fL (79-100) 88 fL (79-100) Mean Corpuscular Hemoglobin 30 pg (25-35) 30 pg (25-35) Mean Corpuscular Hemoglobin Concent 34 g/dL (31-37) 34 g/dL (31-37) Red Cell Distribution Width 12.5 % (11.5-14.5) 12.2 % (11.5-14.5) Platelet Count 339 x10^3/uL (140-400) 238 x10^3/uL (140-400) Neutrophils (%) (Auto) 49 % (31-73) 77 % (31-73) Lymphocytes (%) (Auto) 38 % (24-48) 18 % (24-48) Monocytes (%) (Auto) 8 % (0-9) 5 % (0-9) Eosinophils (%) (Auto) 4 % (0-3) 0 % (0-3) Basophils (%) (Auto) 1 % (0-3) 0 % (0-3) Neutrophils # (Auto) 4.9 x10^3/uL (1.8-7.7) 7.5 x10^3/uL (1.8-7.7) Lymphocytes # (Auto) 3.9 x10^3/uL (1.0-4.8) 1.7 x10^3/uL (1.0-4.8) Monocytes # (Auto) 0.8 x10^3/uL (0.0-1.1) 0.5 x10^3/uL (0.0-1.1) Eosinophils # (Auto) 0.4 x10^3/uL (0.0-0.7) 0.0 x10^3/uL (0.0-0.7) Basophils # (Auto) 0.1 x10^3/uL (0.0-0.2) 0.0 x10^3/uL (0.0-0.2) Urine Collection Type Unknown Urine Color Yellow Urine Clarity Cloudy Urine pH 6.5 Urine Specific [place] 1.020 Urine Protein Negative mg/dL (NEG-TRACE) Urine Glucose (UA) Negative mg/dL (NEG) Urine Ketones (Stick) Negative mg/dL (NEG) Urine Blood Negative (NEG) Urine Nitrite Negative (NEG) Urine Bilirubin Negative (NEG) Urine Urobilinogen Dipstick 1.0 mg/dL (0.2 mg/dL) Urine Leukocyte Esterase Large (NEG) Urine RBC Occ /HPF (0-2) Urine WBC 11-20 /HPF (0-4) Urine Squamous Epithelial Cells Many /LPF Urine Amorphous Sediment Present /HPF Urine Bacteria Many /HPF (0-FEW) Urine Mucus Marked /LPF Sodium Level 145 mmol/L (136-145) 141 mmol/L (136-145) Potassium Level 3.7 mmol/L (3.5-5.1) 4.1 mmol/L (3.5-5.1) Chloride Level 106 mmol/L (98-107) 106 mmol/L (98-107) Carbon Dioxide Level 26 mmol/L (21-32) 24 mmol/L (21-32) Anion Gap 13 (6-14) 11 (6-14) Blood Urea Nitrogen 17 mg/dL (7-20) 13 mg/dL (7-20) Creatinine 1.0 mg/dL (0.6-1.0) 0.9 mg/dL (0.6-1.0) Estimated GFR (Cockcroft-Gault) 58.7 66.3 BUN/Creatinine Ratio 17 (6-20) 14 (6-20) Glucose Level 112 mg/dL (70-99) 95 mg/dL (70-99) Calcium Level 10.0 mg/dL (8.5-10.1) 8.7 mg/dL (8.5-10.1) Total Bilirubin 0.3 mg/dL (0.2-1.0) 0.4 mg/dL (0.2-1.0) Aspartate Amino Transf (AST/SGOT) 14 U/L (15-37) 43 U/L (15-37) Alanine Aminotransferase (ALT/SGPT) 21 U/L (14-59) 39 U/L (14-59) Alkaline Phosphatase 51 U/L (46-116) 38 U/L (46-116) Troponin I Quantitative < 0.017 ng/mL (0.000-0.055) Total Protein 7.1 g/dL (6.4-8.2) 5.9 g/dL (6.4-8.2) Albumin 4.0 g/dL (3.4-5.0) 2.8 g/dL (3.4-5.0) Albumin/Globulin Ratio 1.3 (1.0-1.7) 0.9 (1.0-1.7) Lipase 181 U/L (73-393) Laboratory Tests Test 02/18/19 03:55 White Blood Count 9.7 x10^3/uL (4.0-11.0) Red Blood Count 4.03 x10^6/uL (3.50-5.40) Hemoglobin 12.0 g/dL (12.0-15.5) Hematocrit 35.2 % (36.0-47.0) Mean Corpuscular Volume 88 fL (79-100) Mean Corpuscular Hemoglobin 30 pg (25-35) Mean Corpuscular Hemoglobin Concent 34 g/dL (31-37) Red Cell Distribution Width 12.2 % (11.5-14.5) Platelet Count 238 x10^3/uL (140-400) Neutrophils (%) (Auto) 77 % (31-73) Lymphocytes (%) (Auto) 18 % (24-48) Monocytes (%) (Auto) 5 % (0-9) Eosinophils (%) (Auto) 0 % (0-3) Basophils (%) (Auto) 0 % (0-3) Neutrophils # (Auto) 7.5 x10^3/uL (1.8-7.7) Lymphocytes # (Auto) 1.7 x10^3/uL (1.0-4.8) Monocytes # (Auto) 0.5 x10^3/uL (0.0-1.1) Eosinophils # (Auto) 0.0 x10^3/uL (0.0-0.7) Basophils # (Auto) 0.0 x10^3/uL (0.0-0.2) Sodium Level 141 mmol/L (136-145) Potassium Level 4.1 mmol/L (3.5-5.1) Chloride Level 106 mmol/L (98-107) Carbon Dioxide Level 24 mmol/L (21-32) Anion Gap 11 (6-14) Blood Urea Nitrogen 13 mg/dL (7-20) Creatinine 0.9 mg/dL (0.6-1.0) Estimated GFR (Cockcroft-Gault) 66.3 BUN/Creatinine Ratio 14 (6-20) Glucose Level 95 mg/dL (70-99) Calcium Level 8.7 mg/dL (8.5-10.1) Total Bilirubin 0.4 mg/dL (0.2-1.0) Aspartate Amino Transf (AST/SGOT) 43 U/L (15-37) Alanine Aminotransferase (ALT/SGPT) 39 U/L (14-59) Alkaline Phosphatase 38 U/L (46-116) Total Protein 5.9 g/dL (6.4-8.2) Albumin 2.8 g/dL (3.4-5.0) Albumin/Globulin Ratio 0.9 (1.0-1.7) Problem List Problems Medical Problems: (1) Cholecystitis, acute with cholelithiasis Status: Acute (2) Urinary tract infection Status: Acute Assessment/Plan s/p ivory increase activity defer hypertension, bradycardia to IPC PHANI GONZALES MD 02/18/19 1320: SURGICAL PROGRESS NOTE Assessment/Plan pt seen [id number] with some sero-bilious output follow drainage as per IPC FRANCISCA DOUGHERTY APRN Feb 18, 2019 08:34 PHANI GONZALES MD Feb 18, 2019 13:20
[2019-02-18] MEDS ORDERED: HYDR-3164 PO (08:37)
--- NOTE | 2019-02-18 10:16 | PDOC ---
PROGRESS NOTES Chief Complaint Chief Complaint s/p florina dodson (02/17) HX total thyroidectomy supposed to be on synthroid] Low pain tolerance History of Present Illness History of Present Illness very tender to mild palpation post op florina dodson yesterday 02/17 External drain some 20-30cc bilous drainage Claikms she takes synthroid at home K 4.1 on K containing IVF Still claims no appetite and going to bathroom made her feel horrible COmplains of low bP and low hR PLAN: Dc K IVF REcheck TSH t3 T4 Awaiting home meds radhames dose synthroid IVF 100cc now claims hypotension bradycardic -- HR 50s, SBP 100s ENcourage ambulation and pO NOt ready to dc - low pain tolerance dw RN meghan Vitals Vitals Vital Signs Date Time Temp Pulse Resp B/P (MAP) Pulse Ox O2 Delivery O2 Flow Rate FiO2 02/18/19 09:43 Room Air 02/18/19 07:00 98.7 47 18 102/61 (75) 96 98.7 02/17/19 21:16 2.0 Physical Exam General: Alert, Oriented X3, Cooperative Heart: Regular rate, Normal S1, Normal S2 Abdomen: Soft, Other (drain dark bloody, incision dressings dry) Extremities: No clubbing, No cyanosis, No edema, Normal pulses, No tenderness/swelling Skin: No rashes, No breakdown, No significant lesion Labs LABS Laboratory Tests Test 02/18/19 03:55 White Blood Count 9.7 x10^3/uL (4.0-11.0) Red Blood Count 4.03 x10^6/uL (3.50-5.40) Hemoglobin 12.0 g/dL (12.0-15.5) Hematocrit 35.2 % (36.0-47.0) Mean Corpuscular Volume 88 fL (79-100) Mean Corpuscular Hemoglobin 30 pg (25-35) Mean Corpuscular Hemoglobin Concent 34 g/dL (31-37) Red Cell Distribution Width 12.2 % (11.5-14.5) Platelet Count 238 x10^3/uL (140-400) Neutrophils (%) (Auto) 77 % (31-73) Lymphocytes (%) (Auto) 18 % (24-48) Monocytes (%) (Auto) 5 % (0-9) Eosinophils (%) (Auto) 0 % (0-3) Basophils (%) (Auto) 0 % (0-3) Neutrophils # (Auto) 7.5 x10^3/uL (1.8-7.7) Lymphocytes # (Auto) 1.7 x10^3/uL (1.0-4.8) Monocytes # (Auto) 0.5 x10^3/uL (0.0-1.1) Eosinophils # (Auto) 0.0 x10^3/uL (0.0-0.7) Basophils # (Auto) 0.0 x10^3/uL (0.0-0.2) Sodium Level 141 mmol/L (136-145) Potassium Level 4.1 mmol/L (3.5-5.1) Chloride Level 106 mmol/L (98-107) Carbon Dioxide Level 24 mmol/L (21-32) Anion Gap 11 (6-14) Blood Urea Nitrogen 13 mg/dL (7-20) Creatinine 0.9 mg/dL (0.6-1.0) Estimated GFR (Cockcroft-Gault) 66.3 BUN/Creatinine Ratio 14 (6-20) Glucose Level 95 mg/dL (70-99) Calcium Level 8.7 mg/dL (8.5-10.1) Total Bilirubin 0.4 mg/dL (0.2-1.0) Aspartate Amino Transf (AST/SGOT) 43 U/L (15-37) Alanine Aminotransferase (ALT/SGPT) 39 U/L (14-59) Alkaline Phosphatase 38 U/L (46-116) Total Protein 5.9 g/dL (6.4-8.2) Albumin 2.8 g/dL (3.4-5.0) Albumin/Globulin Ratio 0.9 (1.0-1.7) Review of Systems Review of Systems post op pain, low BP, low HR, poor PO, feels miserable Assessment and Plan Assessmemt and Plan Problems Medical Problems: (1) Cholecystitis, acute with cholelithiasis Status: Acute (2) Urinary tract infection Status: Acute Comment Review of Relevant I have reviewed the following items goldy (where applicable) has been applied. Labs Laboratory Tests Test 02/16/19 22:55 02/18/19 03:55 White Blood Count 10.0 x10^3/uL (4.0-11.0) 9.7 x10^3/uL (4.0-11.0) Red Blood Count 4.83 x10^6/uL (3.50-5.40) 4.03 x10^6/uL (3.50-5.40) Hemoglobin 14.2 g/dL (12.0-15.5) 12.0 g/dL (12.0-15.5) Hematocrit 42.0 % (36.0-47.0) 35.2 % (36.0-47.0) Mean Corpuscular Volume 87 fL (79-100) 88 fL (79-100) Mean Corpuscular Hemoglobin 30 pg (25-35) 30 pg (25-35) Mean Corpuscular Hemoglobin Concent 34 g/dL (31-37) 34 g/dL (31-37) Red Cell Distribution Width 12.5 % (11.5-14.5) 12.2 % (11.5-14.5) Platelet Count 339 x10^3/uL (140-400) 238 x10^3/uL (140-400) Neutrophils (%) (Auto) 49 % (31-73) 77 % (31-73) Lymphocytes (%) (Auto) 38 % (24-48) 18 % (24-48) Monocytes (%) (Auto) 8 % (0-9) 5 % (0-9) Eosinophils (%) (Auto) 4 % (0-3) 0 % (0-3) Basophils (%) (Auto) 1 % (0-3) 0 % (0-3) Neutrophils # (Auto) 4.9 x10^3/uL (1.8-7.7) 7.5 x10^3/uL (1.8-7.7) Lymphocytes # (Auto) 3.9 x10^3/uL (1.0-4.8) 1.7 x10^3/uL (1.0-4.8) Monocytes # (Auto) 0.8 x10^3/uL (0.0-1.1) 0.5 x10^3/uL (0.0-1.1) Eosinophils # (Auto) 0.4 x10^3/uL (0.0-0.7) 0.0 x10^3/uL (0.0-0.7) Basophils # (Auto) 0.1 x10^3/uL (0.0-0.2) 0.0 x10^3/uL (0.0-0.2) Urine Collection Type Unknown Urine Color Yellow Urine Clarity Cloudy Urine pH 6.5 Urine Specific [place] 1.020 Urine Protein Negative mg/dL (NEG-TRACE) Urine Glucose (UA) Negative mg/dL (NEG) Urine Ketones (Stick) Negative mg/dL (NEG) Urine Blood Negative (NEG) Urine Nitrite Negative (NEG) Urine Bilirubin Negative (NEG) Urine Urobilinogen Dipstick 1.0 mg/dL (0.2 mg/dL) Urine Leukocyte Esterase Large (NEG) Urine RBC Occ /HPF (0-2) Urine WBC 11-20 /HPF (0-4) Urine Squamous Epithelial Cells Many /LPF Urine Amorphous Sediment Present /HPF Urine Bacteria Many /HPF (0-FEW) Urine Mucus Marked /LPF Sodium Level 145 mmol/L (136-145) 141 mmol/L (136-145) Potassium Level 3.7 mmol/L (3.5-5.1) 4.1 mmol/L (3.5-5.1) Chloride Level 106 mmol/L (98-107) 106 mmol/L (98-107) Carbon Dioxide Level 26 mmol/L (21-32) 24 mmol/L (21-32) Anion Gap 13 (6-14) 11 (6-14) Blood Urea Nitrogen 17 mg/dL (7-20) 13 mg/dL (7-20) Creatinine 1.0 mg/dL (0.6-1.0) 0.9 mg/dL (0.6-1.0) Estimated GFR (Cockcroft-Gault) 58.7 66.3 BUN/Creatinine Ratio 17 (6-20) 14 (6-20) Glucose Level 112 mg/dL (70-99) 95 mg/dL (70-99) Calcium Level 10.0 mg/dL (8.5-10.1) 8.7 mg/dL (8.5-10.1) Total Bilirubin 0.3 mg/dL (0.2-1.0) 0.4 mg/dL (0.2-1.0) Aspartate Amino Transf (AST/SGOT) 14 U/L (15-37) 43 U/L (15-37) Alanine Aminotransferase (ALT/SGPT) 21 U/L (14-59) 39 U/L (14-59) Alkaline Phosphatase 51 U/L (46-116) 38 U/L (46-116) Troponin I Quantitative < 0.017 ng/mL (0.000-0.055) Total Protein 7.1 g/dL (6.4-8.2) 5.9 g/dL (6.4-8.2) Albumin 4.0 g/dL (3.4-5.0) 2.8 g/dL (3.4-5.0) Albumin/Globulin Ratio 1.3 (1.0-1.7) 0.9 (1.0-1.7) Lipase 181 U/L (73-393) Laboratory Tests Test 02/18/19 03:55 White Blood Count 9.7 x10^3/uL (4.0-11.0) Red Blood Count 4.03 x10^6/uL (3.50-5.40) Hemoglobin 12.0 g/dL (12.0-15.5) Hematocrit 35.2 % (36.0-47.0) Mean Corpuscular Volume 88 fL (79-100) Mean Corpuscular Hemoglobin 30 pg (25-35) Mean Corpuscular Hemoglobin Concent 34 g/dL (31-37) Red Cell Distribution Width 12.2 % (11.5-14.5) Platelet Count 238 x10^3/uL (140-400) Neutrophils (%) (Auto) 77 % (31-73) Lymphocytes (%) (Auto) 18 % (24-48) Monocytes (%) (Auto) 5 % (0-9) Eosinophils (%) (Auto) 0 % (0-3) Basophils (%) (Auto) 0 % (0-3) Neutrophils # (Auto) 7.5 x10^3/uL (1.8-7.7) Lymphocytes # (Auto) 1.7 x10^3/uL (1.0-4.8) Monocytes # (Auto) 0.5 x10^3/uL (0.0-1.1) Eosinophils # (Auto) 0.0 x10^3/uL (0.0-0.7) Basophils # (Auto) 0.0 x10^3/uL (0.0-0.2) Sodium Level 141 mmol/L (136-145) Potassium Level 4.1 mmol/L (3.5-5.1) Chloride Level 106 mmol/L (98-107) Carbon Dioxide Level 24 mmol/L (21-32) Anion Gap 11 (6-14) Blood Urea Nitrogen 13 mg/dL (7-20) Creatinine 0.9 mg/dL (0.6-1.0) Estimated GFR (Cockcroft-Gault) 66.3 BUN/Creatinine Ratio 14 (6-20) Glucose Level 95 mg/dL (70-99) Calcium Level 8.7 mg/dL (8.5-10.1) Total Bilirubin 0.4 mg/dL (0.2-1.0) Aspartate Amino Transf (AST/SGOT) 43 U/L (15-37) Alanine Aminotransferase (ALT/SGPT) 39 U/L (14-59) Alkaline Phosphatase 38 U/L (46-116) Total Protein 5.9 g/dL (6.4-8.2) Albumin 2.8 g/dL (3.4-5.0) Albumin/Globulin Ratio 0.9 (1.0-1.7) Medications Current Medications Sodium Chloride 1,000 ml @ 1,000 mls/hr 1X ONCE IV Last administered on 02/16/19at 23:04; Start 02/16/19 at 23:30; Stop 02/17/19 at 00:29; Status DC Multi-Ingredient Mouthwash/Gargle (Gi Cocktail) 20 ml 1X ONCE SWSW Last administered on 02/16/19at 23:04; Start 02/16/19 at 23:30; Stop 02/16/19 at 23:31; Status DC Morphine Sulfate (Morphine Sulfate) 5 mg 1X ONCE IV Last administered on 02/16/19at 23:04; Start 02/16/19 at 23:30; Stop 02/16/19 at 23:31; Status DC Morphine Sulfate (Morphine Sulfate) 5 mg 1X ONCE IV Last administered on 02/16/19at 23:57; Start 02/17/19 at 00:30; Stop 02/17/19 at 00:31; Status DC Piperacillin Sod/ Tazobactam Sod 3.375 gm/Sodium Chloride 50 ml @ 100 mls/hr 1X ONCE IV Last administered on 02/17/19 01:01; Start 02/17/19 at 01:00; Stop 02/17/19 at 01:29; Status DC Ceftriaxone Sodium (Rocephin) 1 gm 1X ONCE IVP Last administered on 02/17/19 01:01; Start 02/17/19 at 01:00; Stop 02/17/19 at 01:01; Status DC Ondansetron HCl (Zofran) 4 mg PRN Q8HRS PRN IV NAUSEA/VOMITING 1ST CHOICE; Start 02/17/19 at 01:00; Stop 02/18/19 at 00:59; Status DC Morphine Sulfate (Morphine Sulfate) 4 mg PRN Q2HR PRN IV SEVERE PAIN 7-10 Last administered on 02/17/19at 21:16; Start 02/17/19 at 01:00; Stop 02/18/19 at 00:59; Status DC Ondansetron HCl (Zofran) 4 mg PRN Q6HRS PRN IV NAUSEA/VOMITING; Start 02/17/19 at 09:00; Stop 02/17/19 at 20:00; Status DC Fentanyl Citrate (Fentanyl 2ml Vial) 25 mcg PRN Q5MIN PRN IV MILD PAIN 1-3; Start 02/17/19 at 09:00; Stop 02/17/19 at 20:00; Status DC Fentanyl Citrate (Fentanyl 2ml Vial) 50 mcg PRN Q5MIN PRN IV MODERATE TO SEVERE PAIN; Start 02/17/19 at 09:00; Stop 02/17/19 at 20:00; Status DC Morphine Sulfate (Morphine Sulfate) 1 mg PRN Q10MIN PRN IV SEVERE PAIN 7-10 Last administered on 02/17/19 16:29; Start 02/17/19 at 09:00; Stop 02/17/19 at 20:00; Status DC Ringer's Solution 1,000 ml @ 30 mls/hr Q24H IV Last administered on 02/17/19 16:27; Start 02/17/19 at 08:52; Stop 02/17/19 at 20:51; Status DC Hydromorphone HCl (Dilaudid) 0.5 mg PRN Q10MIN PRN IV SEV PAIN, Second choice Last administered on 12/19/19at 16:57; Start 02/17/19 at 09:00; Stop 02/17/19 at 20:00; Status DC Prochlorperazine Edisylate (Compazine) 5 mg PACU PRN PRN IV NAUSEA, MRX1 Last administered on 02/17/19at 16:57; Start 02/17/19 at 09:00; Stop 02/17/19 at 20:00; Status DC Oxycodone/ Acetaminophen (Percocet 5/325) 1 tab PRN Q4HRS PRN PO MODERATE TO SEVERE PAIN; Start 02/17/19 at 09:15 Ondansetron HCl (Zofran) 4 mg PRN Q6HRS PRN IVP NAUSEA/VOMITING; Start 02/17/19 at 09:15 Acetaminophen (Tylenol) 500 mg PRN Q6HRS PRN PO MILD PAIN / TEMP; Start 02/17/19 at 09:15 Zolpidem Tartrate (Ambien) 5 mg PRN QHS PRN PO INSOMNIA; Start 02/17/19 at 09:15 Calcium Carbonate/ Glycine (Tums) 500 mg PRN AFTMEALHC PRN PO INDIGESTION; Start 02/17/19 at 09:15 Cyclobenzaprine HCl (Flexeril) 10 mg PRN TID PRN PO MUSCLE PAIN; Start 02/17/19 at 09:15 Acetaminophen/ Hydrocodone Bitart (Lortab 5/325) 1 tab PRN QID PRN PO MODERATE PAIN; Start 02/17/19 at 09:15 Piperacillin Sod/ Tazobactam Sod 3.375 gm/Sodium Chloride 50 ml @ 100 mls/hr 1X ONCE IV Last administered on 02/17/19at 14:10; Start 02/17/19 at 11:15; Stop 02/17/19 at 11:44; Status DC Dexamethasone Sodium Phosphate (Decadron) 4 mg STK-MED ONCE .ROUTE ; Start 02/17/19 at 11:57; Stop 02/17/19 at 11:57; Status DC Propofol 20 ml @ As Directed STK-MED ONCE IV ; Start 02/17/19 at 11:57; Stop 02/17/19 at 11:57; Status DC Lidocaine HCl (Lidocaine Pf 2% Vial) 5 ml STK-MED ONCE .ROUTE ; Start 02/17/19 at 11:57; Stop 02/17/19 at 11:57; Status DC Ondansetron HCl (Zofran) 4 mg STK-MED ONCE .ROUTE ; Start 02/17/19 at 11:57; Stop 02/17/19 at 11:57; Status DC Glucagon (Glucagen) 1 mg STK-MED ONCE .ROUTE ; Start 02/17/19 at 13:03; Stop 02/17/19 at 13:04; Status DC Iohexol (Omnipaque 300 Mg/ml) 50 ml STK-MED ONCE .ROUTE Last administered on 02/17/19at 14:47; Start 02/17/19 at 13:03; Stop 02/17/19 at 13:04; Status DC Cellulose (Surgicel Hemostat 4x8) 1 each STK-MED ONCE .ROUTE Last administered on 02/17/19at 14:51; Start 02/17/19 at 13:03; Stop 02/17/19 at 13:04; Status DC Bupivacaine HCl/ Epinephrine Bitart (Sensorcain-Epi 0.5%-1:[id number] Mpf) 30 ml 1X ONCE INJ Last administered on 02/17/19at 14:26; Start 02/17/19 at 13:15; Stop 02/17/19 at 13:16; Status DC Glucagon (Glucagen) 1 mg STK-MED ONCE .ROUTE ; Start 02/17/19 at 13:40; Stop 02/17/19 at 13:40; Status DC Cellulose (Surgicel Hemostat 4x8) 1 each STK-MED ONCE .ROUTE ; Start 02/17/19 at 13:40; Stop 02/17/19 at 13:40; Status DC Rocuronium [place] (Zemuron) 50 mg STK-MED ONCE .ROUTE ; Start 02/17/19 at 13:55; Stop 02/17/19 at 13:55; Status DC Fentanyl Citrate (Fentanyl 2ml Vial) 100 mcg STK-MED ONCE .ROUTE ; Start 02/17/19 at 13:55; Stop 02/17/19 at 13:56; Status DC Neostigmine Methylsulfate (Neostigmine Methylsulfate) 5 mg STK-MED ONCE .ROUTE ; Start 02/17/19 at 13:55; Stop 02/17/19 at 13:56; Status DC Glycopyrrolate (Robinul) 1 mg STK-MED ONCE .ROUTE ; Start 02/17/19 at 13:55; Stop 02/17/19 at 13:56; Status DC Desflurane (Suprane) 60 ml STK-MED ONCE IH ; Start 02/17/19 at 13:55; Stop 02/17/19 at 13:56; Status DC Etomidate (Amidate) 20 mg STK-MED ONCE IV ; Start 02/17/19 at 14:13; Stop 02/17/19 at 14:13; Status DC Diphenhydramine HCl (Benadryl) 25 mg PRN Q6HRS PRN PO ITCHING; Start 02/17/19 at 15:30 Enoxaparin Sodium (Lovenox 40mg Syringe) 40 mg Q24H SQ ; Start 02/17/19 at 16:00 Sodium Chloride (Normal Saline Flush) 3 ml QSHIFT PRN IV AFTER MEDS AND BLOOD DRAWS; Start 02/17/19 at 15:30 Potassium Chloride/Sodium Chloride 1,000 ml @ 80 mls/hr [id number] IV Last administered on 02/18/19at 05:51; Start 02/17/19 at 15:16; Stop 02/18/19 at 08:26; Status DC Dextrose (Dextrose 50%-Water Syringe) 12.5 gm PRN Q15MIN PRN IV SEE COMMENTS; Start 02/17/19 at 15:30 Dextrose (Iv Dextrose 5%) 250 ml PRN Q15MIN PRN IV SEE COMMENTS; Start 02/17/19 at 15:30 Oxycodone/ Acetaminophen (Percocet 5/325) 1 tab PRN Q4HRS PRN PO MILD PAIN, 1ST CHOICE; Start 02/17/19 at 15:30 Oxycodone/ Acetaminophen (Percocet 5/325) 2 tab PRN Q4HRS PRN PO MODERATE PAIN, SEVERE PAIN Last administered on 02/18/19at 08:30; Start 02/17/19 at 15:30 Naloxone HCl (Narcan) 0.4 mg PRN Q2MIN PRN IV SEE INSTRUCTIONS; Start 02/17/19 at 15:30 Sodium Chloride 1,000 ml @ 25 mls/hr Q24H IV ; Start 02/17/19 at 15:16 Hydromorphone HCl (Dilaudid) 1 mg PRN Q3HRS PRN IV MODERATE TO SEVERE PAIN Last administered on 02/18/19at 04:12; Start 02/17/19 at 15:30 Docusate Sodium (Colace) 100 mg BID PO Last administered on 02/18/19at 08:30; Start 02/17/19 at 21:00 Ondansetron HCl (Zofran) 4 mg PRN Q6HRS PRN IVP NAUESA, 1ST CHOICE; Start 02/17/19 at 15:30 Fentanyl Citrate (Fentanyl 2ml Vial) 100 mcg STK-MED ONCE .ROUTE ; Start 02/17/19 at 15:23; Stop 02/17/19 at 15:24; Status DC Morphine Sulfate (Morphine Sulfate) 2 mg STK-MED ONCE .ROUTE ; Start 02/17/19 at 15:58; Stop 02/17/19 at 15:58; Status DC Hydromorphone HCl (Dilaudid) 2 mg STK-MED ONCE .ROUTE ; Start 02/17/19 at 15:58; Stop 02/17/19 at 15:59; Status DC Active Scripts Active [place] 5-325 Tablet (Acetaminophen/Hydrocodone Bitart) 1 Each Tablet 1 Tab PO QID PRN Ibuprofen 600 Mg Tablet 600 Mg PO PRN Q6HRS PRN Cyclobenzaprine Hcl 10 Mg Tablet 10 Mg PO TID PRN Vitals/I & O Vital Sign - Last 24 Hours 02/17/19 02/17/19 02/17/19 02/17/19 10:40 11:00 11:25 13:45 Temp 98.1 98.8 98.1 98.8 Pulse 61 50 Resp 16 18 B/P (MAP) 92/46 (61) 94/55 Pulse Ox 100 97 O2 Delivery Room Air Room Air Room Air Room Air 02/17/19 02/17/19 02/17/19 02/17/19 15:27 15:35 15:42 15:57 Temp 97.7 97.7 97.7 97.7 97.7 97.7 Pulse 60 53 54 Resp 18 17 B/P (MAP) 133/78 119/73 135/76 Pulse Ox 99 98 95 O2 Delivery Simple Mask Mask Simple Mask Room Air O2 Flow Rate 8 8 6 1202/17/19 02/17/19 02/17/19 16:05 16:11 16:12 16:27 Temp 97.7 97.7 97.7 97.7 Pulse 50 49 Resp 18 17 17 18 B/P (MAP) 122/70 135/75 Pulse Ox 98 96 94 92 O2 Delivery Simple Mask Room Air Room Air Room Air O2 Flow Rate 6.0 02/17/19 02/17/19 02/17/19 02/17/19 16:28 16:29 16:41 16:42 Temp 97.7 97.7 Pulse 52 Resp 18 18 18 18 B/P (MAP) 106/67 Pulse Ox 96 96 96 95 O2 Delivery Room Air Room Air Room Air Room Air 02/17/19 02/17/19 02/17/19 02/17/19 16:57 16:57 17:14 17:29 Temp 98.5 98.5 Pulse 49 46 52 Resp 18 17 B/P (MAP) 115/75 113/68 (83) 115/70 (85) Pulse Ox 96 98 94 96 O2 Delivery Room Air Nasal Cannula O2 Flow Rate 2 02/17/19 02/17/19 02/17/19 02/17/19 17:44 18:00 18:14 19:00 Temp 98.2 98.2 Pulse 60 51 48 54 Resp 18 B/P (MAP) 121/70 (87) 115/56 (75) 122/69 (86) 120/68 (85) Pulse Ox 98 97 97 98 O2 Delivery Nasal Cannula O2 Flow Rate 2.0 02/17/19 02/17/19 02/17/19 02/17/19 19:30 19:45 20:00 21:16 Temp 98.3 98.1 98.3 98.1 Pulse 47 47 Resp 18 18 B/P (MAP) 121/70 (87) 125/71 (89) Pulse Ox 99 100 O2 Delivery Nasal Cannula Nasal Cannula Nasal Cannula Nasal Cannula O2 Flow Rate 2.0 2.0 2.0 2.0 02/17/19 02/17/19 02/18/19 02/18/19 21:46 23:32 02:17 03:23 Temp 98.8 98.8 98.8 98.8 Pulse 51 46 Resp 16 20 B/P (MAP) 113/65 (81) 105/57 (73) Pulse Ox 95 96 O2 Delivery Room Air Room Air Room Air Room Air 02/18/19 02/18/19 02/18/19 02/18/19 04:12 04:15 05:51 07:00 Temp 98.7 98.7 Pulse 47 Resp 18 B/P (MAP) 102/61 (75) Pulse Ox 96 O2 Delivery Room Air Room Air Room Air Room Air 02/18/19 02/18/19 02/18/19 07:20 08:30 09:43 O2 Delivery Room Air Room Air Room Air Intake and Output 02/17/19 02/17/19 02/18/19 15:00 23:00 07:00 Intake Total 1550 ml 1100 ml Output Total 235 ml 630 ml Balance 1315 ml [address] MD Feb 18, 2019 10:16
--- NOTE | 2019-02-18 10:20 | NUR ---
Obtained pt's home med list from pharmacy, [facility]. Unable to add list to "reconcile meds" section of [employer]. Dr. Holland notified and shown obtained home med list, verbal orders received.
[2019-02-18] MEDS ORDERED: ALPRAZolam 0.5 MG TABLET PO PRN (10:30)
[2019-02-18] MEDS ORDERED: ZOLPIDEM 5 MG TABLET. PO PRN (10:30)
[2019-02-18 10:40] LABS: FREE T4 0.78 ng/dL (0.76-1.46); THYROID STIM HORMONE (TSH) 0.248 uIU/mL (0.358-3.74)
--- NOTE | 2019-02-18 10:53 | NUR ---
Pt. states she is not longer taking Lamictal. Pt. informed she would need to bring her Synthroid and Adderal from home. stated she would contact family to bring it.
[2019-02-18] MEDS: hydroCHLOROthiazide 12.5 MG CAPSULE PO SCH (10:58)
[2019-02-18 11:00] VITALS: BP 113/67
--- NOTE | 2019-02-18 11:13 | NUR ---
SW following. Discussed with RN. Pt is from home. RN advised no SW needs and anticipates pt should discharge home today. SW will continue to follow should any discharge needs arise.
[2019-02-18] MEDS: PREGABALIN 50 MG CAPSULE PO SCH (11:21)
[2019-02-18] MEDS: IV NORMAL SALINE 1000ML BAG 1,000 ML IV SCH ×3 (11:21→20:15)
[2019-02-18] MEDS ORDERED: lamoTRIgine 100 MG TABLET. PO SCH (11:30)
[2019-02-18] MEDS: SYNTHROID 175 MCG PO SCH (13:08)
[2019-02-18] MEDS: KETOROLAC 30 MG/ML VIAL. IVP PRN ×2 (14:18→21:11)
[2019-02-18 15:00] VITALS: BP 98/53
[2019-02-18] MEDS: ENOXAPARIN 40 MG/0.4 ML SYRINGE. SQ SCH (15:57)
[2019-02-18 19:40] VITALS: BP 112/62
[2019-02-18] MEDS ORDERED: TOPIRAMATE 100 MG TABLET. PO SCH (21:00)
[2019-02-18] MEDS ORDERED: FAMOTIDINE 20 MG TABLET. PO SCH (21:00)
[2019-02-18 23:17] VITALS: BP 86/42
[2019-02-19] MEDS: oxyCODONE/APAP 5/325 1 TAB TABLET PO PRN ×3 (00:17→12:16)
[2019-02-19 03:06] VITALS: BP 100/64
[2019-02-19 07:00] VITALS: BP 107/75
[2019-02-19] MEDS: IV NORMAL SALINE 1000ML BAG 1,000 ML IV SCH (07:15)
[2019-02-19] MEDS: SYNTHROID 175 MCG PO SCH (07:16)
[2019-02-19] MEDS ORDERED: ADDERAL PO SCH (09:00)
[2019-02-19] MEDS: hydroCHLOROthiazide 12.5 MG CAPSULE PO SCH (09:00)
[2019-02-19] MEDS: DOCUSATE SODIUM 100 MG CAPSULE. PO SCH (09:16)
[2019-02-19] MEDS: PREGABALIN 50 MG CAPSULE PO SCH (09:17)
--- NOTE | 2019-02-19 10:37 | PDOC ---
PROGRESS NOTES Chief Complaint Chief Complaint IMPRESSION s/p lap ivory (02/17) HX total thyroidectomy supposed to be on synthroid] POOR pain tolerance POSSIBLE UTI 02/19 pain, better wants to go home History of Present Illness History of Present Illness K 4.1 on K containing IVF PLAN: Dc K IVF REcheck TSH t3 T4 Awaiting home meds radhames dose synthroid IVF 100cc now claims hypotension bradycardic -- HR 50s, SBP 100s ENcourage ambulation and pO low pain tolerance dw RN d/c [id number] min Vitals Vitals Vital Signs room air Date Time Temp Pulse Resp B/P (MAP) Pulse Ox O2 Delivery O2 Flow Rate FiO2 02/19/19 08:17 20 Room Air 02/19/19 07:17 99 02/19/19 07:00 98.5 60 107/75 (86) 98.5 02/18/19 21:00 2.0 Physical Exam General: Alert, Oriented X3, Cooperative, No acute distress Heart: Regular rate, Normal S1, Normal S2 Lungs: Clear Abdomen: Soft, Other (drain dark bloody, incision dressings dry) Extremities: No clubbing, No cyanosis, No edema, Normal pulses, No tenderness/swelling Skin: No rashes, No breakdown, No significant lesion Labs LABS SPEC #: [id number] SHRUTI: 02/16/19 STATUS: COMP REQ #: [id number] RECD: 02/16/[address]: ANGELICA PINEDA APRN SOURCE: VOID ENTR: 02/16/[address]: KULWINDER,STAFF SPDESC: JAZZY MONSIVAIS MD ORDERED: URINE CULTURE Procedure Result ------ ------ URINE CULTURE Final Final report URINE CULTURE RES 1 Final Comment Mixed urogenital pasquale 25,000-50,000 colony forming units per mL Performed at: DA - [facility] [address], [place], [place] [id number] Digital Campaign Specialist: ZHOU Arce MD, Phone: [phone] : 1970 LOC: [address] [place] [address] AGE: 49 SEX: F STATUS: ADM IN LOCATION: [address] [place] [address] DATE OF SURGERY: 02/17/2019 PREOPERATIVE DIAGNOSES: Cholelithiasis with acute cholecystitis. POSTOPERATIVE DIAGNOSES: Cholelithiasis with acute cholecystitis. PROCEDURE: Laparoscopic cholecystectomy with cholangiogram. SURGEON: Sanjeev William MD HAND III CUTTER: GALLO Gordon ANESTHESIA: General endotracheal. ESTIMATED BLOOD LOSS: 10 mL. INTRAVENOUS: 700 mL. Assessment and Plan Assessmemt and Plan Problems Medical Problems: (1) Cholecystitis, acute with cholelithiasis Status: Acute (2) Urinary tract infection Status: Acute Comment Review of Relevant I have reviewed the following items goldy (where applicable) has been applied. Labs Laboratory Tests Test 02/18/19 03:55 White Blood Count 9.7 x10^3/uL (4.0-11.0) Red Blood Count 4.03 x10^6/uL (3.50-5.40) Hemoglobin 12.0 g/dL (12.0-15.5) Hematocrit 35.2 % (36.0-47.0) Mean Corpuscular Volume 88 fL (79-100) Mean Corpuscular Hemoglobin 30 pg (25-35) Mean Corpuscular Hemoglobin Concent 34 g/dL (31-37) Red Cell Distribution Width 12.2 % (11.5-14.5) Platelet Count 238 x10^3/uL (140-400) Neutrophils (%) (Auto) 77 % (31-73) Lymphocytes (%) (Auto) 18 % (24-48) Monocytes (%) (Auto) 5 % (0-9) Eosinophils (%) (Auto) 0 % (0-3) Basophils (%) (Auto) 0 % (0-3) Neutrophils # (Auto) 7.5 x10^3/uL (1.8-7.7) Lymphocytes # (Auto) 1.7 x10^3/uL (1.0-4.8) Monocytes # (Auto) 0.5 x10^3/uL (0.0-1.1) Eosinophils # (Auto) 0.0 x10^3/uL (0.0-0.7) Basophils # (Auto) 0.0 x10^3/uL (0.0-0.2) Sodium Level 141 mmol/L (136-145) Potassium Level 4.1 mmol/L (3.5-5.1) Chloride Level 106 mmol/L (98-107) Carbon Dioxide Level 24 mmol/L (21-32) Anion Gap 11 (6-14) Blood Urea Nitrogen 13 mg/dL (7-20) Creatinine 0.9 mg/dL (0.6-1.0) Estimated GFR (Cockcroft-Gault) 66.3 BUN/Creatinine Ratio 14 (6-20) Glucose Level 95 mg/dL (70-99) Calcium Level 8.7 mg/dL (8.5-10.1) Total Bilirubin 0.4 mg/dL (0.2-1.0) Aspartate Amino Transf (AST/SGOT) 43 U/L (15-37) Alanine Aminotransferase (ALT/SGPT) 39 U/L (14-59) Alkaline Phosphatase 38 U/L (46-116) Total Protein 5.9 g/dL (6.4-8.2) Albumin 2.8 g/dL (3.4-5.0) Albumin/Globulin Ratio 0.9 (1.0-1.7) Thyroid Stimulating Hormone (TSH) 0.248 uIU/mL (0.358-3.74) Free Thyroxine 0.78 ng/dL (0.76-1.46) Free Triiodothyronine (T3) pg/mL 1.04 pg/mL (2.18-3.98) Microbiology 02/16/19 Urine Culture - Final, Complete 02/16/19 Urine Culture Result 1 (TYOIN) - Final, Complete Medications Current Medications Sodium Chloride 1,000 ml @ 1,000 mls/hr 1X ONCE IV Last administered on 02/16/19at 23:04; Start 02/16/19 at 23:30; Stop 02/17/19 at 00:29; Status DC Multi-Ingredient Mouthwash/Gargle (Gi Cocktail) 20 ml 1X ONCE SWSW Last administered on 02/16/19at 23:04; Start 02/16/19 at 23:30; Stop 02/16/19 at 23:31; Status DC Morphine Sulfate (Morphine Sulfate) 5 mg 1X ONCE IV Last administered on 02/16/19 23:04; Start 02/16/19 at 23:30; Stop 02/16/19 at 23:31; Status DC Morphine Sulfate (Morphine Sulfate) 5 mg 1X ONCE IV Last administered on 02/16/19at 23:57; Start 02/17/19 at 00:30; Stop 02/17/19 at 00:31; Status DC Piperacillin Sod/ Tazobactam Sod 3.375 gm/Sodium Chloride 50 ml @ 100 mls/hr 1X ONCE IV Last administered on 02/17/19 01:01; Start 02/17/19 at 01:00; Stop 02/17/19 at 01:29; Status DC Ceftriaxone Sodium (Rocephin) 1 gm 1X ONCE IVP Last administered on 02/17/19at 01:01; Start 02/17/19 at 01:00; Stop 02/17/19 at 01:01; Status DC Ondansetron HCl (Zofran) 4 mg PRN Q8HRS PRN IV NAUSEA/VOMITING 1ST CHOICE; Start 02/17/19 at 01:00; Stop 02/18/19 at 00:59; Status DC Morphine Sulfate (Morphine Sulfate) 4 mg PRN Q2HR PRN IV SEVERE PAIN 7-10 Last administered on 02/17/19at 21:16; Start 02/17/19 at 01:00; Stop 02/18/19 at 00:59; Status DC Ondansetron HCl (Zofran) 4 mg PRN Q6HRS PRN IV NAUSEA/VOMITING; Start 02/17/19 at 09:00; Stop 02/17/19 at 20:00; Status DC Fentanyl Citrate (Fentanyl 2ml Vial) 25 mcg PRN Q5MIN PRN IV MILD PAIN 1-3; Start 02/17/19 at 09:00; Stop 02/17/19 at 20:00; Status DC Fentanyl Citrate (Fentanyl 2ml Vial) 50 mcg PRN Q5MIN PRN IV MODERATE TO SEVERE PAIN; Start 02/17/19 at 09:00; Stop 02/17/19 at 20:00; Status DC Morphine Sulfate (Morphine Sulfate) 1 mg PRN Q10MIN PRN IV SEVERE PAIN 7-10 Last administered on 02/17/19at 16:29; Start 02/17/19 at 09:00; Stop 02/17/19 at 20:00; Status DC Ringer's Solution 1,000 ml @ 30 mls/hr Q24H IV Last administered on 02/17/19at 16:27; Start 02/17/19 at 08:52; Stop 02/17/19 at 20:51; Status DC Hydromorphone HCl (Dilaudid) 0.5 mg PRN Q10MIN PRN IV SEV PAIN, Second choice Last administered on 02/17/19at 16:57; Start 02/17/19 at 09:00; Stop 02/17/19 at 20:00; Status DC Prochlorperazine Edisylate (Compazine) 5 mg PACU PRN PRN IV NAUSEA, MRX1 Last administered on 02/17/19at 16:57; Start 02/17/19 at 09:00; Stop 02/17/19 at 20:00; Status DC Oxycodone/ Acetaminophen (Percocet 5/325) 1 tab PRN Q4HRS PRN PO MODERATE TO SEVERE PAIN; Start 02/17/19 at 09:15; Stop 02/18/19 at 14:09; Status DC Ondansetron HCl (Zofran) 4 mg PRN Q6HRS PRN IVP NAUSEA/VOMITING; Start 02/17/19 at 09:15; Stop 02/18/19 at 14:09; Status DC Acetaminophen (Tylenol) 500 mg PRN Q6HRS PRN PO MILD PAIN / TEMP Last administered on 02/18/19at 11:22; Start 02/17/19 at 09:15 Zolpidem Tartrate (Ambien) 5 mg PRN QHS PRN PO INSOMNIA; Start 02/17/19 at 09:15; Stop 02/18/19 at 14:10; Status DC Calcium Carbonate/ Glycine (Tums) 500 mg PRN AFTMEALHC PRN PO INDIGESTION; Start 02/17/19 at 09:15 Cyclobenzaprine HCl (Flexeril) 10 mg PRN TID PRN PO MUSCLE PAIN; Start 02/17/19 at 09:15 Acetaminophen/ Hydrocodone Bitart (Lortab 5/325) 1 tab PRN QID PRN PO MODERATE PAIN, 2nd choice; Start 02/17/19 at 09:15 Piperacillin Sod/ Tazobactam Sod 3.375 gm/Sodium Chloride 50 ml @ 100 mls/hr 1X ONCE IV Last administered on 02/17/19at 14:10; Start 02/17/19 at 11:15; Stop 02/17/19 at 11:44; Status DC Dexamethasone Sodium Phosphate (Decadron) 4 mg STK-MED ONCE .ROUTE ; Start 02/17/19 at 11:57; Stop 02/17/19 at 11:57; Status DC Propofol 20 ml @ As Directed STK-MED ONCE IV ; Start 02/17/19 at 11:57; Stop 02/17/19 at 11:57; Status DC Lidocaine HCl (Lidocaine Pf 2% Vial) 5 ml STK-MED ONCE .ROUTE ; Start 02/17/19 at 11:57; Stop 02/17/19 at 11:57; Status DC Ondansetron HCl (Zofran) 4 mg STK-MED ONCE .ROUTE ; Start 02/17/19 at 11:57; Stop 02/17/19 at 11:57; Status DC Glucagon (Glucagen) 1 mg STK-MED ONCE .ROUTE ; Start 02/17/19 at 13:03; Stop 02/17/19 at 13:04; Status DC Iohexol (Omnipaque 300 Mg/ml) 50 ml STK-MED ONCE .ROUTE Last administered on 02/17/19at 14:47; Start 02/17/19 at 13:03; Stop 02/17/19 at 13:04; Status DC Cellulose (Surgicel Hemostat 4x8) 1 each STK-MED ONCE .ROUTE Last administered on 02/17/19at 14:51; Start 02/17/19 at 13:03; Stop 02/17/19 at 13:04; Status DC Bupivacaine HCl/ Epinephrine Bitart (Sensorcain-Epi 0.5%-1:[id number] Mpf) 30 ml 1X ONCE INJ Last administered on 02/17/19at 14:26; Start 02/17/19 at 13:15; Stop 02/17/19 at 13:16; Status DC Glucagon (Glucagen) 1 mg STK-MED ONCE .ROUTE ; Start 02/17/19 at 13:40; Stop 02/17/19 at 13:40; Status DC Cellulose (Surgicel Hemostat 4x8) 1 each STK-MED ONCE .ROUTE ; Start 02/17/19 at 13:40; Stop 02/17/19 at 13:40; Status DC Rocuronium [place] (Zemuron) 50 mg STK-MED ONCE .ROUTE ; Start 02/17/19 at 13:55; Stop 02/17/19 at 13:55; Status DC Fentanyl Citrate (Fentanyl 2ml Vial) 100 mcg STK-MED ONCE .ROUTE ; Start 02/17/19 at 13:55; Stop 02/17/19 at 13:56; Status DC Neostigmine Methylsulfate (Neostigmine Methylsulfate) 5 mg STK-MED ONCE .ROUTE ; Start 02/17/19 at 13:55; Stop 02/17/19 at 13:56; Status DC Glycopyrrolate (Robinul) 1 mg STK-MED ONCE .ROUTE ; Start 02/17/19 at 13:55; Stop 02/17/19 at 13:56; Status DC Desflurane (Suprane) 60 ml STK-MED ONCE IH ; Start 02/17/19 at 13:55; Stop 02/17/19 at 13:56; Status DC Etomidate (Amidate) 20 mg STK-MED ONCE IV ; Start 02/17/19 at 14:13; Stop 02/17/19 at 14:13; Status DC Diphenhydramine HCl (Benadryl) 25 mg PRN Q6HRS PRN PO ITCHING; Start 02/17/19 at 15:30 Enoxaparin Sodium (Lovenox 40mg Syringe) 40 mg Q24H SQ Last administered on 02/18/19at 15:57; Start 02/17/19 at 16:00 Sodium Chloride (Normal Saline Flush) 3 ml QSHIFT PRN IV AFTER MEDS AND BLOOD DRAWS; Start 02/17/19 at 15:30 Potassium Chloride/Sodium Chloride 1,000 ml @ 80 mls/hr [id number] IV Last administered on 02/18/19at 05:51; Start 02/17/19 at 15:16; Stop 02/18/19 at 08:26; Status DC Dextrose (Dextrose 50%-Water Syringe) 12.5 gm PRN Q15MIN PRN IV SEE COMMENTS; Start 02/17/19 at 15:30 Dextrose (Iv Dextrose 5%) 250 ml PRN Q15MIN PRN IV SEE COMMENTS; Start 02/17/19 at 15:30 Oxycodone/ Acetaminophen (Percocet 5/325) 1 tab PRN Q4HRS PRN PO MILD PAIN, 1ST CHOICE; Start 02/17/19 at 15:30 Oxycodone/ Acetaminophen (Percocet 5/325) 2 tab PRN Q4HRS PRN PO MOD PAIN, SEV PAIN, 1st choice Last administered on 02/19/19at 07:17; Start 02/17/19 at 15:30 Naloxone HCl (Narcan) 0.4 mg PRN Q2MIN PRN IV SEE INSTRUCTIONS; Start 02/17/19 at 15:30 Sodium Chloride 1,000 ml @ 25 mls/hr Q24H IV ; Start 02/17/19 at 15:16; Stop 02/19/19 at 07:30; Status DC Hydromorphone HCl (Dilaudid) 1 mg PRN Q3HRS PRN IV MODERATE TO SEVERE PAIN Last administered on 02/18/19at 04:12; Start 02/17/19 at 15:30 Docusate Sodium (Colace) 100 mg BID PO Last administered on 02/19/19at 09:16; Start 02/17/19 at 21:00 Ondansetron HCl (Zofran) 4 mg PRN Q6HRS PRN IVP NAUESA, 1ST CHOICE; Start 02/17/19 at 15:30 Fentanyl Citrate (Fentanyl 2ml Vial) 100 mcg STK-MED ONCE .ROUTE ; Start 02/17/19 at 15:23; Stop 02/17/19 at 15:24; Status DC Morphine Sulfate (Morphine Sulfate) 2 mg STK-MED ONCE .ROUTE ; Start 02/17/19 at 15:58; Stop 02/17/19 at 15:58; Status DC Hydromorphone HCl (Dilaudid) 2 mg STK-MED ONCE .ROUTE ; Start 02/17/19 at 15:58; Stop 02/17/19 at 15:59; Status DC Sodium Chloride 1,000 ml @ 100 mls/hr Q10H IV Last administered on 02/19/19at 07:15; Start 02/18/19 at 10:15 Ketorolac Tromethamine (Toradol 30mg Vial) 30 mg PRN Q6HRS PRN IVP PAIN Last administered on 02/18/19at 21:11; Start 02/18/19 at 10:15; Stop 02/23/19 at 10:14 Non-Formulary Medication 1 ea DAILYAC PO Last administered on 02/19/19at 07:16; Start 02/18/19 at 12:45 Alprazolam (Xanax) 0.5 mg PRN DAILY PRN PO ANXIETY / AGITATION; Start 02/18/19 at 10:30 Pregabalin (Lyrica) 100 mg DAILY PO Last administered on 02/19/19at 09:17; Start 02/18/19 at 11:30 Hydrochlorothiazide (Microzide) 12.5 mg DAILY PO ; Start 02/18/19 at 11:30 Famotidine (Pepcid) 40 mg QHS PO Last administered on 02/18/19at 21:10; Start 02/18/19 at 21:00 Zolpidem Tartrate (Ambien) 5 mg PRN QHS PRN PO INSOMNIA, MAY REPEAT IN 1HR; Start 02/18/19 at 10:30 Topiramate (Topamax) 100 mg QHS PO Last administered on 02/18/19at 21:10; Start 02/18/19 at 21:00 Lamotrigine (LaMICtal) 200 mg DAILY PO ; Start 02/18/19 at 11:30; Stop 02/18/19 at 10:56; Status DC Non-Formulary Medication (Adderal ER) 25 mg DAILY PO ; Start 02/19/19 at 09:00; Status UNV Active Scripts Active [place] 5-325 Tablet (Acetaminophen/Hydrocodone Bitart) 1 Each Tablet 1 Tab PO QID PRN Ibuprofen 600 Mg Tablet 600 Mg PO PRN Q6HRS PRN Cyclobenzaprine Hcl 10 Mg Tablet 10 Mg PO TID PRN Vitals/I & O Vital Sign - Last 24 Hours 02/18/19 02/18/19 02/18/19 02/18/19 11:00 15:00 19:40 19:48 Temp 98.1 98.3 98.1 98.1 98.3 98.1 Pulse 46 55 63 Resp 18 18 18 20 B/P (MAP) 113/67 (82) 98/53 (68) 112/62 (79) Pulse Ox 98 98 99 O2 Delivery Room Air Room Air Room Air 02/18/19 02/18/19 02/18/19 02/19/19 20:00 21:00 23:17 00:17 Temp 98.0 98.0 Pulse 52 Resp 18 18 B/P (MAP) 86/42 (57) Pulse Ox 97 97 97 O2 Delivery Room Air Room Air Room Air Room Air O2 Flow Rate 2.0 02/19/19 02/19/19 02/19/19 02/19/19 01:15 03:06 07:00 07:17 Temp 98.1 98.5 98.1 98.5 Pulse 46 60 Resp 18 20 18 20 B/P (MAP) 100/64 (76) 107/75 (86) Pulse Ox 99 99 99 99 O2 Delivery Room Air Room Air Room Air Room Air 02/19/19 08:17 Resp 20 O2 Delivery Room Air Intake and Output 02/18/19 02/18/19 02/19/19 15:00 23:00 07:00 Intake Total 100 ml 0 ml 580 ml Output Total 200 ml 210 ml 360 ml Balance -100 ml -210 ml 220 ml JAZZY VILLEDA MD Feb 19, 2019 10:37
[2019-02-19 11:00] VITALS: BP 109/75
--- NOTE | 2019-02-19 13:34 | PDOC ---
Provider Note Provider Note SURG feels better ready to go home send with drain to office Thursday PHANI GONZALES MD Feb 19, 2019 13:34
--- NOTE | 2019-02-19 14:21 | PDOC3 ---
Discharge Summary Date of Admission: Feb 16, 2019 Date of Discharge: Feb 19, 2019 Follow-Up: 3-5 days Admitting Diagnosis comment: discharge dx s/p lap ivory (02/17) HX total thyroidectomy supposed to be on synthroid] POOR pain tolerance POSSIBLE UTI 02/19 pain, better wants to go home History of Present Illness History of Present Illness K 4.1 on K containing IVF PLAN: Dc K IVF REcheck TSH t3 T4 Awaiting home meds radhames dose synthroid IVF 100cc now claims hypotension bradycardic -- HR 50s, SBP 100s ENcourage ambulation and pO low pain tolerance dw RN see surgery this thursday d/c [id number] min Vitals Vitals Vital Signs room air Date Time Temp Pulse Resp B/P (MAP) Pulse Ox O2 Delivery O2 Flow Rate FiO2 02/19/19 08:17 20 Room Air 02/19/19 07:17 99 02/19/19 07:00 98.5 60 107/75 (86) 98.5 02/18/19 21:00 2.0 Physical Exam General: Alert, Oriented X3, Cooperative, No acute distress Heart: Regular rate, Normal S1, Normal S2 Lungs: Clear Abdomen: Soft, Other (drain dark bloody, incision dressings dry) Extremities: No clubbing, No cyanosis, No edema, Normal pulses, No tenderness/swelling Skin: No rashes, No breakdown, No significant lesion Labs LABS SPEC #: [id number] SHRUTI: 02/16/19 STATUS: COMP REQ #: [id number] RECD: 02/16/[address]: ANGELICA PINEDA APRN SOURCE: VOID ENTR: 02/16/[address]: KULWINDER,STAFF SPDESC: JAZZY MONSIVAIS MD ORDERED: URINE CULTURE --- --------- Procedure Result URINE CULTURE Final Final report URINE CULTURE RES 1 Final Comment Mixed urogenital pasquale 25,000-50,000 colony forming units per mL Performed at: - [facility] [address] [facility] [address], [place], [place] [id number] Inspecting Machine Adjuster: ZHOU Arce MD, Phone: [phone] FINAL DIAGNOSIS Problems Medical Problems: (1) Cholecystitis, acute with cholelithiasis Status: Acute (2) Urinary tract infection Status: Acute Brief Hospital Course Ms. Cantrell is a 49 old [sex] who presented with [cholecystitis ] CONDITION AT DISCHARGE: Improved Discharge Medications Current Medications Sodium Chloride 1,000 ml @ 1,000 mls/hr 1X ONCE IV Last administered on 02/16/19 23:04; Start 02/16/19 at 23:30; Stop 02/17/19 at 00:29; Status DC Multi-Ingredient Mouthwash/Gargle (Gi Cocktail) 20 ml 1X ONCE SWSW Last administered on 02/16/19 23:04; Start 02/16/19 at 23:30; Stop 02/16/19 at 23:31; Status DC Morphine Sulfate (Morphine Sulfate) 5 mg 1X ONCE IV Last administered on 02/16/19 23:04; Start 02/16/19 at 23:30; Stop 02/16/19 at 23:31; Status DC Morphine Sulfate (Morphine Sulfate) 5 mg 1X ONCE IV Last administered on 02/16/19at 23:57; Start 02/17/19 at 00:30; Stop 02/17/19 at 00:31; Status DC Piperacillin Sod/ Tazobactam Sod 3.375 gm/Sodium Chloride 50 ml @ 100 mls/hr 1X ONCE IV Last administered on 02/17/19at 01:01; Start 02/17/19 at 01:00; Stop 02/17/19 at 01:29; Status DC Ceftriaxone Sodium (Rocephin) 1 gm 1X ONCE IVP Last administered on 02/17/19at 01:01; Start 02/17/19 at 01:00; Stop 02/17/19 at 01:01; Status DC Ondansetron HCl (Zofran) 4 mg PRN Q8HRS PRN IV NAUSEA/VOMITING 1ST CHOICE; Start 02/17/19 at 01:00; Stop 02/18/19 at 00:59; Status DC Morphine Sulfate (Morphine Sulfate) 4 mg PRN Q2HR PRN IV SEVERE PAIN 7-10 Last administered on 02/17/19at 21:16; Start 02/17/19 at 01:00; Stop 02/18/19 at 00:59; Status DC Ondansetron HCl (Zofran) 4 mg PRN Q6HRS PRN IV NAUSEA/VOMITING; Start 02/17/19 at 09:00; Stop 02/17/19 at 20:00; Status DC Fentanyl Citrate (Fentanyl 2ml Vial) 25 mcg PRN Q5MIN PRN IV MILD PAIN 1-3; Start 02/17/19 at 09:00; Stop 02/17/19 at 20:00; Status DC Fentanyl Citrate (Fentanyl 2ml Vial) 50 mcg PRN Q5MIN PRN IV MODERATE TO SEVERE PAIN; Start 02/17/19 at 09:00; Stop 02/17/19 at 20:00; Status DC Morphine Sulfate (Morphine Sulfate) 1 mg PRN Q10MIN PRN IV SEVERE PAIN 7-10 Last administered on 02/17/19at 16:29; Start 02/17/19 at 09:00; Stop 02/17/19 at 20:00; Status DC Ringer's Solution 1,000 ml @ 30 mls/hr Q24H IV Last administered on 02/17/19at 16:27; Start 02/17/19 at 08:52; Stop 02/17/19 at 20:51; Status DC Hydromorphone HCl (Dilaudid) 0.5 mg PRN Q10MIN PRN IV SEV PAIN, Second choice Last administered on 02/17/19at 16:57; Start 02/17/19 at 09:00; Stop 02/17/19 at 20:00; Status DC Prochlorperazine Edisylate (Compazine) 5 mg PACU PRN PRN IV NAUSEA, MRX1 Last administered on 02/17/19at 16:57; Start 02/17/19 at 09:00; Stop 02/17/19 at 20:00; Status DC Oxycodone/ Acetaminophen (Percocet 5/325) 1 tab PRN Q4HRS PRN PO MODERATE TO SEVERE PAIN; Start 02/17/19 at 09:15; Stop 02/18/19 at 14:09; Status DC Ondansetron HCl (Zofran) 4 mg PRN Q6HRS PRN IVP NAUSEA/VOMITING; Start 02/17/19 at 09:15; Stop 02/18/19 at 14:09; Status DC Acetaminophen (Tylenol) 500 mg PRN Q6HRS PRN PO MILD PAIN / TEMP Last administered on 02/18/19at 11:22; Start 02/17/19 at 09:15 Zolpidem Tartrate (Ambien) 5 mg PRN QHS PRN PO INSOMNIA; Start 02/17/19 at 09:15; Stop 02/18/19 at 14:10; Status DC Calcium Carbonate/ Glycine (Tums) 500 mg PRN AFTMEALHC PRN PO INDIGESTION; Start 02/17/19 at 09:15 Cyclobenzaprine HCl (Flexeril) 10 mg PRN TID PRN PO MUSCLE PAIN; Start 02/17/19 at 09:15 Acetaminophen/ Hydrocodone Bitart (Lortab 5/325) 1 tab PRN QID PRN PO MODERATE PAIN, 2nd choice; Start 02/17/19 at 09:15 Piperacillin Sod/ Tazobactam Sod 3.375 gm/Sodium Chloride 50 ml @ 100 mls/hr 1X ONCE IV Last administered on 02/17/19at 14:10; Start 02/17/19 at 11:15; Stop 02/17/19 at 11:44; Status DC Dexamethasone Sodium Phosphate (Decadron) 4 mg STK-MED ONCE .ROUTE ; Start 01/30 11/18 at 11:57; Stop 02/17/19 at 11:57; Status DC Propofol 20 ml @ As Directed STK-MED ONCE IV ; Start 02/17/19 at 11:57; Stop 02/17/19 at 11:57; Status DC Lidocaine HCl (Lidocaine Pf 2% Vial) 5 ml STK-MED ONCE .ROUTE ; Start 02/17/19 at 11:57; Stop 02/17/19 at 11:57; Status DC Ondansetron HCl (Zofran) 4 mg STK-MED ONCE .ROUTE ; Start 02/17/19 at 11:57; Stop 02/17/19 at 11:57; Status DC Glucagon (Glucagen) 1 mg STK-MED ONCE .ROUTE ; Start 02/17/19 at 13:03; Stop 02/17/19 at 13:04; Status DC Iohexol (Omnipaque 300 Mg/ml) 50 ml STK-MED ONCE .ROUTE Last administered on 02/17/19at 14:47; Start 02/17/19 at 13:03; Stop 02/17/19 at 13:04; Status DC Cellulose (Surgicel Hemostat 4x8) 1 each STK-MED ONCE .ROUTE Last administered on 02/17/19at 14:51; Start 02/17/19 at 13:03; Stop 02/17/19 at 13:04; Status DC Bupivacaine HCl/ Epinephrine Bitart (Sensorcain-Epi 0.5%-1:939019 Mpf) 30 ml 1X ONCE INJ Last administered on 02/17/19at 14:26; Start 02/17/19 at 13:15; Stop 02/17/19 at 13:16; Status DC Glucagon (Glucagen) 1 mg STK-MED ONCE .ROUTE ; Start 02/17/19 at 13:40; Stop 02/17/19 at 13:40; Status DC Cellulose (Surgicel Hemostat 4x8) 1 each STK-MED ONCE .ROUTE ; Start 02/17/19 at 13:40; Stop 02/17/19 at 13:40; Status DC Rocuronium [place] (Zemuron) 50 mg STK-MED ONCE .ROUTE ; Start 02/17/19 at 13:55; Stop 02/17/19 at 13:55; Status DC Fentanyl Citrate (Fentanyl 2ml Vial) 100 mcg STK-MED ONCE .ROUTE ; Start 02/17/19 at 13:55; Stop 02/17/19 at 13:56; Status DC Neostigmine Methylsulfate (Neostigmine Methylsulfate) 5 mg STK-MED ONCE .ROUTE ; Start 02/17/19 at 13:55; Stop 02/17/19 at 13:56; Status DC Glycopyrrolate (Robinul) 1 mg STK-MED ONCE .ROUTE ; Start 02/17/19 at 13:55; Stop 02/17/19 at 13:56; Status DC Desflurane (Suprane) 60 ml STK-MED ONCE IH ; Start 02/17/19 at 13:55; Stop 02/17/19 at 13:56; Status DC Etomidate (Amidate) 20 mg STK-MED ONCE IV ; Start 02/17/19 at 14:13; Stop 02/17/19 at 14:13; Status DC Diphenhydramine HCl (Benadryl) 25 mg PRN Q6HRS PRN PO ITCHING; Start 02/17/19 at 15:30 Enoxaparin Sodium (Lovenox 40mg Syringe) 40 mg Q24H SQ Last administered on 02/18/19at 15:57; Start 02/17/19 at 16:00 Sodium Chloride (Normal Saline Flush) 3 ml QSHIFT PRN IV AFTER MEDS AND BLOOD DRAWS; Start 02/17/19 at 15:30 Potassium Chloride/Sodium Chloride 1,000 ml @ 80 mls/hr [id number] IV Last administered on 02/18/19at 05:51; Start 02/17/19 at 15:16; Stop 02/18/19 at 08:26; Status DC Dextrose (Dextrose 50%-Water Syringe) 12.5 gm PRN Q15MIN PRN IV SEE COMMENTS; Start 02/17/19 at 15:30 Dextrose (Iv Dextrose 5%) 250 ml PRN Q15MIN PRN IV SEE COMMENTS; Start 02/17/19 at 15:30 Oxycodone/ Acetaminophen (Percocet 5/325) 1 tab PRN Q4HRS PRN PO MILD PAIN, 1ST CHOICE; Start 02/17/19 at 15:30 Oxycodone/ Acetaminophen (Percocet 5/325) 2 tab PRN Q4HRS PRN PO MOD PAIN, SEV PAIN, 1st choice Last administered on 02/19/19at 12:16; Start 02/17/19 at 15:30 Naloxone HCl (Narcan) 0.4 mg PRN Q2MIN PRN IV SEE INSTRUCTIONS; Start 02/17/19 at 15:30 Sodium Chloride 1,000 ml @ 25 mls/hr Q24H IV ; Start 02/17/19 at 15:16; Stop 02/19/19 at 07:30; Status DC Hydromorphone HCl (Dilaudid) 1 mg PRN Q3HRS PRN IV MODERATE TO SEVERE PAIN Last administered on 02/18/19at 04:12; Start 02/17/19 at 15:30 Docusate Sodium (Colace) 100 mg BID PO Last administered on 02/19/19at 09:16; Start 02/17/19 at 21:00 Ondansetron HCl (Zofran) 4 mg PRN Q6HRS PRN IVP NAUESA, 1ST CHOICE; Start at 15:30 Fentanyl Citrate (Fentanyl 2ml Vial) 100 mcg STK-MED ONCE .ROUTE ; Start 02/17/19 at 15:23; Stop 02/17/19 at 15:24; Status DC Morphine Sulfate (Morphine Sulfate) 2 mg STK-MED ONCE .ROUTE ; Start 02/17/19 at 15:58; Stop 02/17/19 at 15:58; Status DC Hydromorphone HCl (Dilaudid) 2 mg STK-MED ONCE .ROUTE ; Start 02/17/19 at 15:58; Stop 02/17/19 at 15:59; Status DC Sodium Chloride 1,000 ml @ 100 mls/hr Q10H IV Last administered on 02/19/19at 07:15; Start 02/18/19 at 10:15 Ketorolac Tromethamine (Toradol 30mg Vial) 30 mg PRN Q6HRS PRN IVP PAIN Last administered on 02/18/19at 21:11; Start 02/18/19 at 10:15; Stop 02/23/19 at 10:14 Non-Formulary Medication 1 ea DAILYAC PO Last administered on 02/19/19at 07:16; Start 02/18/19 at 12:45 Alprazolam (Xanax) 0.5 mg PRN DAILY PRN PO ANXIETY / AGITATION Last administered on 02/19/19at 12:16; Start 02/18/19 at 10:30 Pregabalin (Lyrica) 100 mg DAILY PO Last administered on 02/19/19at 09:17; Start 02/18/19 at 11:30 Hydrochlorothiazide (Microzide) 12.5 mg DAILY PO ; Start 02/18/19 at 11:30 Famotidine (Pepcid) 40 mg QHS PO Last administered on 02/18/19at 21:10; Start 02/18/19 at 21:00 Zolpidem Tartrate (Ambien) 5 mg PRN QHS PRN PO INSOMNIA, MAY REPEAT IN 1HR; Start 02/18/19 at 10:30 Topiramate (Topamax) 100 mg QHS PO Last administered on 02/18/19at 21:10; Start 02/18/19 at 21:00 Lamotrigine (LaMICtal) 200 mg DAILY PO ; Start 02/18/19 at 11:30; Stop 02/18/19 at 10:56; Status DC Non-Formulary Medication (Adderal ER) 25 mg DAILY PO ; Start 02/19/19 at 09:00; Status UNV Active Scripts Active [place] 5-325 Tablet (Acetaminophen/Hydrocodone Bitart) 1 Each Tablet 1 Tab PO QID PRN Ibuprofen 600 Mg Tablet 600 Mg PO PRN Q6HRS PRN Cyclobenzaprine Hcl 10 Mg Tablet 10 Mg PO TID PRN Vital Signs Vital Signs Date Time Temp Pulse Resp B/P (MAP) Pulse Ox O2 Delivery O2 Flow Rate FiO2 02/19/19 12:16 20 Room Air 02/19/19 11:00 98.0 54 109/75 (86) 99 98.0 02/18/19 21:00 2.0 Labs Laboratory Tests Test 02/18/19 03:55 White Blood Count 9.7 x10^3/uL (4.0-11.0) Red Blood Count 4.03 x10^6/uL (3.50-5.40) Hemoglobin 12.0 g/dL (12.0-15.5) Hematocrit 35.2 % (36.0-47.0) Mean Corpuscular Volume 88 fL (79-100) Mean Corpuscular Hemoglobin 30 pg (25-35) Mean Corpuscular Hemoglobin Concent 34 g/dL (31-37) Red Cell Distribution Width 12.2 % (11.5-14.5) Platelet Count 238 x10^3/uL (140-400) Neutrophils (%) (Auto) 77 % (31-73) Lymphocytes (%) (Auto) 18 % (24-48) Monocytes (%) (Auto) 5 % (0-9) Eosinophils (%) (Auto) 0 % (0-3) Basophils (%) (Auto) 0 % (0-3) Neutrophils # (Auto) 7.5 x10^3/uL (1.8-7.7) Lymphocytes # (Auto) 1.7 x10^3/uL (1.0-4.8) Monocytes # (Auto) 0.5 x10^3/uL (0.0-1.1) Eosinophils # (Auto) 0.0 x10^3/uL (0.0-0.7) Basophils # (Auto) 0.0 x10^3/uL (0.0-0.2) Sodium Level 141 mmol/L (136-145) Potassium Level 4.1 mmol/L (3.5-5.1) Chloride Level 106 mmol/L (98-107) Carbon Dioxide Level 24 mmol/L (21-32) Anion Gap 11 (6-14) Blood Urea Nitrogen 13 mg/dL (7-20) Creatinine 0.9 mg/dL (0.6-1.0) Estimated GFR (Cockcroft-Gault) 66.3 BUN/Creatinine Ratio 14 (6-20) Glucose Level 95 mg/dL (70-99) Calcium Level 8.7 mg/dL (8.5-10.1) Total Bilirubin 0.4 mg/dL (0.2-1.0) Aspartate Amino Transf (AST/SGOT) 43 U/L (15-37) Alanine Aminotransferase (ALT/SGPT) 39 U/L (14-59) Alkaline Phosphatase 38 U/L (46-116) Total Protein 5.9 g/dL (6.4-8.2) Albumin 2.8 g/dL (3.4-5.0) Albumin/Globulin Ratio 0.9 (1.0-1.7) Thyroid Stimulating Hormone (TSH) 0.248 uIU/mL (0.358-3.74) Free Thyroxine 0.78 ng/dL (0.76-1.46) Free Triiodothyronine (T3) pg/mL 1.04 pg/mL (2.18-3.98) Allergies Allergies Coded Allergies Type Severity Reaction Last Updated Verified levothyroxine Allergy Intermediate HIVES 03/30/17 Yes propofol Adverse Reaction Intermediate VERTIGO 03/30/17 Yes Disposition/Orders: D/C to Home Patient Instructions d/c planning 27 min JAZZY VILLEDA MD Feb 19, 2019 14:20
--- NOTE | 2019-02-19 15:12 | NUR ---
discharge teaching completed. IV site discontinued without difficulty. Medication returned to patient. Pt states she understands her discharge teaching and home medications. Three prescriptions given to pt. Spouse was taught how to empty TAWNYA drain, record amount and change dressing if needed. She was discharged to home with spouse. Escorted out by staff via wheelchair.
--- NOTE | 2019-02-21 23:06 | PATHOLOGY ---
[facility] Accession Number: [id number] . 01 Material submitted: . gallbladder - GALLBLADDER . 01 Clinical history: . Cholecystitis. . 02 Diagnosis: Gallbladder "gallbladder", cholecystectomy: - Chronic cholecystitis with cholelithiasis. (SHA/db; 02/21/2019) LBQ 02/21/2019 1529 Local . 02 Electronically signed: . Adalberto Powers MD, Pathologist NPI- [id number] . 01 Gross description: . Received in formalin labeled "Óscar, Soila, gallbladder" is an intact cholecystectomy specimen measuring 8.6 x 3.0 x 2.8 cm. The serosa is bermudez-red and focally hemorrhagic and the specimen is opened to reveal pale bermudez velvety mucosa without polyps or masses. The average wall thickness is 0.3 cm. One calculus is present, which is green and roughened and measures 1.7 cm in greatest dimension. [employer] sections of the fundus and body and the cystic duct margin are submitted in A1. ([facility]; 02/20/2019) [facility] 02/20/2019 1022 Local . 02 Pathologist provided ICD-10: K80.10 . 02 CPT . 802253 Specimen Comment: A courtesy copy of this report has been sent to [phone] Specimen Comment: [id number], Specimen Comment: Report sent to ,DR MONSIVAIS / DR JUAREZ Performed at: [facility] [address], [place] [id number] MD Matt Lazo MD Phone: [phone] Performed at: 02 [facility] [address] [place], [place] [id number] MD Hemal Reyez MD Phone: [phone]
== END 2019-02-19 15:00 | disposition home or self-care (01) | DRG 418 ==
LOC: ER 22:47 → 4 NORTH 02-17 00:35 → ER 02-17 01:20
PROVIDERS: ADMIT Internal Medicine; ATTEND Internal Medicine
PROC: 0FT44ZZ Resection of Gallbladder, Percutaneous Endoscopic Approach (ICD-10-PCS; principal; 2019-02-18)
PROC: BF101ZZ Fluoroscopy of Bile Ducts using Low Osmolar Contrast (ICD-10-PCS; 2019-02-18)
DX: K80.00 Calculus of gallbladder with acute cholecystitis without obstruction (principal); N39.0 Urinary tract infection, site not specified; E78.00 Pure hypercholesterolemia, unspecified; E78.1 Pure hyperglyceridemia; E78.5 Hyperlipidemia, unspecified; E89.0 Postprocedural hypothyroidism; F31.9 Bipolar disorder, unspecified; Z98.51 Tubal ligation status; G43.909 Migraine, unspecified, not intractable, without status migrainosus
CPT/HCPCS: 36415; 71046; 74300; 76700; 80053; 81001; 83690; 84439; 84443; 84481; 84484; 85025; 87086; 93005; A7015; J0696; J0780; J1100; J1170; J1610; J1650; J1885; J2001; J2270; J2405; J2543; J2704; J2710; J3010; J3490; J7030; J7120; Q9967; G0378